=== PATIENT | female | born 1960 | race Caucasian/White ===

== ENCOUNTER 2020-02-09 11:41 | Outpatient (REF) | payer OTHER, SELFPAY ==
--- NOTE | 2020-02-09 11:45 | MM_ITS ---
EXAMINATION: MM SCREENING DIGITAL BREAST TOMOSYNTHESIS, BILATERAL CLINICAL INFORMATION: Screening. Asymptomatic. The lifetime risk of breast cancer based on the Tyrer-Cuzick Model is 5%. COMPARISON: Mammography: 09/23/2018, 07/04/2017, 04/26/2016 TECHNIQUE: Digital breast tomosynthesis is performed in both the craniocaudal and mediolateral oblique views along with computer-aided detection (CAD). Synthesized 2D images are generated from the tomosynthesis. FINDINGS: There are scattered areas of fibroglandular density (ACR BI-RADS breast composition Category b). There are no significant masses, abnormal calcifications, or other abnormalities. Parenchymal pattern is similar to prior studies. Nodular asymmetry mid central outer left breast on CC view is stable. There is no developing density. No significant changes from prior studies. MM/MM tomosynthesis screening BI IMPRESSION: No significant changes from prior studies. ASSESSMENT: BI-RADS 2: Benign RECOMMENDATION: Routine annual mammography screening. This patient's information was entered into a reminder system with a target due date for their next mammogram.
== END 2020-02-09 11:42 | disposition home or self-care (01) ==
LOC: HO.MAMMO 11:41
PROVIDERS: PCP Internal Medicine; Visit Provider Internal Medicine
DX: Z12.31 Encounter for screening mammogram for malignant neoplasm of breast (principal)
CPT/HCPCS: 77063; 77067

== ENCOUNTER 2020-03-03 13:39 | Outpatient (REF) | payer OTHER, SELFPAY ==
[2020-03-03 15:35] LABS: Alanine Aminotransferase 9 U/L (0-31); Albumin Level 3.9 g/dL (3.5-5.0); Alkaline Phosphatase 62 U/L (39-117); Anion Gap 12 (12-20); Aspartate Amino Transferase 13 U/L (5-31); Bilirubin Total 0.4 mg/dL (0.0-1.0); Blood Urea Nitrogen 15 mg/dL (9-16); Carbon Dioxide 29 mmol/L (22-29); Chloride 104 mmol/L (96-108); Cholesterol 197 mg/dL; Estimated Glomerular Filt Rate > 60; Glucose Random 109 mg/dL (60-115); HDL Cholesterol 41 mg/dL; LDL Cholesterol Calculated 117 mg/dl; Potassium 4.8 mmol/l (3.3-5.1); Sodium 140 mmol/L (135-145); Total Protein 6.6 g/dL (6.5-8.0); Triglycerides 199 mg/dL
== END 2020-03-03 13:40 | disposition home or self-care (01) ==
LOC: HO.LAB 13:39
PROVIDERS: PCP Internal Medicine; Visit Provider Internal Medicine
DX: E78.2 Mixed hyperlipidemia (principal); I10 Essential (primary) hypertension; R73.01 Impaired fasting glucose; Z72.0 Tobacco use
CPT/HCPCS: 80053; 80061

== ENCOUNTER 2020-10-21 16:55 | Inpatient (IN) | payer OTHER, SELFPAY ==
[2020-10-21] VITALS (8 sets, daily range): BP systolic 133–186; BP diastolic 76–103; PULSE 75–90; RESP 16–19; TEMP 36.8; O2SAT 95–96; BMI 28.9; BMI 36.3
--- NOTE | 2020-10-21 | ECG_ITS ---
Test Reason : ABNORML LABS Blood Pressure : / mmHG Vent. Rate : 094 BPM Atrial Rate : 094 BPM P-R Int : 154 ms QRS Dur : 074 ms QT Int : 372 ms P-R-T Axes : 072 066 010 degrees QTc Int : 465 ms Normal sinus rhythm Lateral ST depression Abnormal ECG When compared with ECG of 21-OCT-2020 17:50, Lateral changes are new Referred By: Lewis Luna Electronically Signed By:JEANNIE ESCOBAR
--- NOTE | ~2020-10-21 | XR_ITS ---
EXAMINATION: XR chest 1V CLINICAL INFORMATION: Chest pain COMPARISON: Prior chest x-ray May 2017 TECHNIQUE: XR chest 1V Lungs and Pura: Both lungs remain properly inflated, mild increased interstitial lung markings nonspecific unchanged, no dense lobar consolidation or pneumonia. Pleura: Normal. Costophrenic angles are sharp. No pneumothorax. Heart: The heart is normal in size. Mediastinum: The mediastinum is within normal limits.. Bones: Skeletal structures included are normal for patient's age. XR/XR chest 1V IMPRESSION: No radiographic evidence of acute cardiopulmonary disease.
--- NOTE | 2020-10-21 17:19 | ECG_ITS ---
Test Reason : CHEST PAIN Blood Pressure : / mmHG Vent. Rate : 087 BPM Atrial Rate : 087 BPM P-R Int : 150 ms QRS Dur : 074 ms QT Int : 380 ms P-R-T Axes : 069 056 002 degrees QTc Int : 457 ms Normal sinus rhythm Normal ECG No previous ECGs available Referred By: Generic ED Physician Electronically Signed By:JEANNIE ESCOBAR
--- NOTE | 2020-10-21 17:46 | PC.NURSE ---
EKG in use upon arrival
[2020-10-21 18:41] LABS: MANUAL DIFF FLAG NO
[2020-10-21 18:45] LABS: Basophils Absolute Auto 0.1 X10*3/uL (0.0-0.2); Basophils Percent Auto 0.6 % (0-2); Eosinophils Absolute Auto 0.1 X10*3/uL (0.0-0.4); Hemoglobin 16.9 g/dl (12.0-16.0); Imm Gran Abs Auto 0.05 X10*3/uL (0.00-0.03); Imm Gran Pct Auto 0.4 % (0.0-0.4); Lymphocytes Absolute Auto 2.3 X10*3/uL (1.2-4.9); Lymphocytes Percent Auto 18.7 % (20-40); Mean Corpuscular HGB Conc 34.5 g/dl (31.0-35.0); Mean Corpuscular Hemoglobin 31.9 pg (27.0-33.0); Mean Corpuscular Volume 92.5 fL (80-98); Mean Platelet Volume 11.1 fL (9.4-12.3); Monocytes Percent Auto 8.2 % (2-11); Neutrophils Absolute Auto 8.9 X10*3/uL (2.0-8.3); Neutrophils Percent Auto 71.1 % (45-73); Platelet Count 237 X10*3/uL (160-400); Red Cell Distribution Width 13.8 % (11.0-16.0); White Blood Count 12.5 X10*3/uL (4.8-10.8)
[2020-10-21 19:06] LABS: Anion Gap 14 (12-20); Blood Urea Nitrogen 11 mg/dL (9-16); Carbon Dioxide 27 mmol/L (22-29); Chloride 103 mmol/L (96-108); Creatinine Clr Calc Pharmacy 73.3; Estimated Glomerular Filt Rate > 60; Glucose Random 104 mg/dL (60-115); Potassium 4.4 mmol/L (3.3-5.1); Sodium 140 mmol/L (135-145)
[2020-10-21 19:30] LABS: Troponin-I High Sensitivity 1021.4 ng/L (<3.5-17.0)
--- NOTE | 2020-10-21 19:41 | ED_ITS ---
HPI - Chest Pain General Chief Complaint: Chest Pain Stated Complaint: chest pains Time Seen by Provider: 10/21/20 19:30 Source: patient Mode of arrival: ambulatory Limitations: no limitations History of Present Illness HPI narrative: Patient has history of hypertension hyperlipidemia not taking her medication for more than 1 year was at work 2 days ago noticed heaviness tightness feeling and mid chest lasted for few minutes during that day in the evening patient had multiple episodes of similar pain. Next day patient was feeling fine without any significant chest pain today she noticed to have more severe pain since 03:00 intermittent and just prior to arrival patient pain got worse and she vomited. Pain is radiating to the all over the chest patient never had similar pain in the past never had any stress test or cardiac evaluation MD complaint: chest pain Related Data Home Medications Medication Instructions Recorded Confirmed atorvastatin 1 tab PO BEDTIME 10/21/20 10/21/20 lisinopril-hydrochlorothiazide 1 tab PO DAILY 10/21/20 10/21/20 Allergies Allergy/AdvReac Type Severity Reaction Status Date / Time No Known Drug Allergies Allergy Mild NONE Verified 10/21/20 17:19 [NO KNOWN DRUG ALLERGIES] Review of Systems Review of Systems: Constitutional : No Weight loss, No Fever, No Chills ENT/Mouth : No sore throat, No Rhinorrhea Eyes: No Eye Pain, No Swelling Cardiovascular : +Chest Pain, no palpitations Respiratory : No Cough, No Sputum, no shortness of breath Gastrointestinal : no Nausea, No Vomiting, No Diarrhea, No abdominal Pain, no black stools Genitourinary : No Dysuria, No Urinary Frequency Musculoskeletal : No joint pain, No Myalgias, No Joint Swelling Skin : No Skin Lesions, No rash Neuro : No Weakness, No Numbness, No Dizziness, No Headache Psych : No Anxiety/Panic, No Depression Heme/Lymph: No Bruising, No Lymphadenopathy Endocrine : No Polyuria, No Polydipsia All other systems reviewed and are negative [facility] Past Medical History Medical History Hypertension Social History Social History Alcohol intake: never Patient Tobacco Use Status: Current everyday Tobacco user Smoked in Last 30 Days: Yes Use of substances other than those prescribed or required for medical reasons: No Advance Directives: No Advance Directives Information Provided: Yes Physical Exam Vital Signs: Vital Signs: Last Vital Signs Temp 98.2 F 10/21/20 17:15 Pulse 83 10/21/20 23:23 Resp 19 10/21/20 23:23 BP 133/85 10/21/20 23:23 Pulse Ox 96 10/21/20 23:23 Body Mass Index 36.3 Appearance: Alert. Oriented X3. No acute distress. Eyes: PERRLA, No Nystagmus ENT: Pharynx normal. Oral Mucosa moist Neck: Normal inspection. Neck supple. CVS: Normal heart rate and rhythm. Pulses normal. Respiratory: No respiratory distress. Equal air entry bilateral, no wheezing/rales/rhonchi Abdomen: Soft and nontender. Bowel sounds are present, no mass palpable, no CVA tenderness Skin: Skin warm and dry. Normal skin color. Normal skin turgor. Extremities: No lower extremity edema. No calf tenderness Neuro: Oriented X 3. No motor deficit. No sensory deficit.No cerebellar signs , cranial nerves II-XII intact MDM - Chest Pain MDM Narrative Medical decision making narrative: Patient's chest pain for last 3 days off and on getting worse waking her up from the sleep at 03:00 today EKG shows slight ST depression in lateral leads and T inversion inferior leads. Initial troponin was 1021.4 repeat troponin in 2 hours was 1379.9 patient denied any chest pain on after arrival in the ER nitropaste was applied start on heparin drip. Case discussed with Dr. Werner [employer] agreed with the plan will take the patient for cardiac catheterization if the clinician get worse Lab Data Attestation: I reviewed the patient's lab results. Result diagrams: 10/21/20 18:35 10/21/20 18:35 Labs: Lab Results 10/21/20 10/21/20 10/21/20 Range/Units 18:35 18:35 18:35 WBC 12.5 H (4.8-10.8) X10*3/uL RBC 5.30 (4.20-5.50) X10*6/uL Hgb 16.9 H (12.0-16.0) g/dl Hct 49.0 H (37-47) % MCV 92.5 (80-98) fL MCH 31.9 (27.0-33.0) pg MCHC 34.5 (31.0-35.0) g/dl RDW 13.8 (11.0-16.0) % Plt Count 237 (160-400) X10*3/uL MPV 11.1 (9.4-12.3) fL Immature Gran % (Auto) 0.4 (0.0-0.4) % Neut % (Auto) 71.1 (45-73) % Lymph % (Auto) 18.7 L (20-40) % Whitley % (Auto) 8.2 (2-11) % Eos % (Auto) 1.0 (0-4) % Baso % (Auto) 0.6 (0-2) % Lymph # (Auto) 2.3 (1.2-4.9) X10*3/uL Whitley # (Auto) 1.0 (0.1-1.2) X10*3/uL Eos # (Auto) 0.1 (0.0-0.4) X10*3/uL Baso # (Auto) 0.1 (0.0-0.2) X10*3/uL Abs Immat Gran (auto) 0.05 H (0.00-0.03) X10*3/uL Absolute Neuts (auto) 8.9 H (2.0-8.3) X10*3/uL Absolute Nucleated RBC 0.000 (0.0-0.012) X10*3/uL Nucleated RBC % (auto) 0.0 (0.0-0.2) /100WBC PT (9.9-13.0) SEC INR (0.9-1.1) APTT (24.1-38.0) SEC D-Dimer NG/ML Sodium 140 (135-145) mmol/L Potassium 4.4 (3.3-5.1) mmol/L Chloride 103 (96-108) mmol/L Carbon Dioxide 27 (22-29) mmol/L Anion Gap 14 (12-20) BUN 11 (9-16) mg/dL Creatinine 0.68 (0.5-1.4) mg/dL Estim Creat Clear Calc 73.3 Estimated GFR > 60 Random Glucose 104 (60-115) mg/dL Calcium 10.0 D (8.4-10.2) mg/dL Total Creatine Kinase (26-140) U/L Troponin I High Sens 1021.4 H* (<3.5-17.0) ng/L 10/21/20 10/21/20 10/21/20 Range/Units 19:55 19:55 19:55 WBC (4.8-10.8) X10*3/uL RBC (4.20-5.50) X10*6/uL Hgb (12.0-16.0) g/dl Hct (37-47) % MCV (80-98) fL MCH (27.0-33.0) pg MCHC (31.0-35.0) g/dl RDW (11.0-16.0) % Plt Count (160-400) X10*3/uL MPV (9.4-12.3) fL Immature Gran % (Auto) (0.0-0.4) % Neut % (Auto) (45-73) % Lymph % (Auto) (20-40) % Whitley % (Auto) (2-11) % Eos % (Auto) (0-4) % Baso % (Auto) (0-2) % Lymph # (Auto) (1.2-4.9) X10*3/uL Whitley # (Auto) (0.1-1.2) X10*3/uL Eos # (Auto) (0.0-0.4) X10*3/uL Baso # (Auto) (0.0-0.2) X10*3/uL Abs Immat Gran (auto) (0.00-0.03) X10*3/uL Absolute Neuts (auto) (2.0-8.3) X10*3/uL Absolute Nucleated RBC (0.0-0.012) X10*3/uL Nucleated RBC % (auto) (0.0-0.2) /100WBC PT 11.0 (9.9-13.0) SEC INR 1.0 (0.9-1.1) APTT 36.9 (24.1-38.0) SEC D-Dimer < 200 NG/ML Sodium (135-145) mmol/L Potassium (3.3-5.1) mmol/L Chloride (96-108) mmol/L Carbon Dioxide (22-29) mmol/L Anion Gap (12-20) BUN (9-16) mg/dL Creatinine (0.5-1.4) mg/dL Estim Creat Clear Calc Estimated GFR Random Glucose (60-115) mg/dL Calcium (8.4-10.2) mg/dL Total Creatine Kinase 178 H (26-140) U/L Troponin I High Sens 1373.9 H* (<3.5-17.0) ng/L ECG Data ECG #1: Attestation: I personally reviewed and interpreted this ECG as follows: Interpretation: normal sinus rhythm heart rate 87 beats normal axis normal intervals no acute ST-T slight ST segment depression , T inversion in lead 3 impression : ? Lateral wall ischemia ECG #2: Attestation: I personally reviewed and interpreted this ECG as follows: Prior ECG tracings: available for review Interpretation: Normal sinus rhythm with heart rate 94 beats per minute slight ST segment depression in V4 V5 V6. Critical Care Time Critical Care Time Critical Care Time: Yes Total Critical Care Time: 40 Attestation: I spent 40 minutes of critical care, with interventions, assessments, speaking to patient, consultants, and family. Discharge Plan Discharge Clinical Impression: Non-STEMI (non-ST elevated myocardial infarction) Patient Disposition: Admitted As Inpatient
[2020-10-21] MEDS: Nitroglycerin 2 % Oint 1 GM Packet 1 INCH TRANSDERMA (19:56)
[2020-10-21] MEDS: Aspirin Enteric Coated 325 MG TABLET.DR PO (20:06)
[2020-10-21 20:18] LABS: D Dimer < 200 NG/ML; Partial Thromboplastin Time 36.9 SEC (24.1-38.0)
[2020-10-21] MEDS: Heparin Sodium,Porcine 5,000 UNIT/ML VIAL 4000 UNIT IVPUSH (20:20)
[2020-10-21] MEDS: Metoprolol Tartrate 5 MG/5 ML VIAL IVPUSH (20:22)
--- NOTE | 2020-10-21 20:26 | PC.NURSE ---
Pt denies pain, skin pink warm and dry. family at bedside.
[2020-10-21] MEDS: Heparin Sodium,Porcine/1/2NS 25,000 UNIT/250 ML IV.SOLN 10 UNIT IVCONT ×2 (20:37→20:40)
[2020-10-21 20:45] LABS: Troponin-I High Sensitivity 1373.9 ng/L (<3.5-17.0)
--- NOTE | 2020-10-21 21:51 | PHA.MEDREC ---
Pharmacy Consult ? Medication Reconciliation Pharmacy has completed the medication reconciliation. Patient reports she has not taken any of her meds in over 1 year. This was confirmed by family with her.
--- NOTE | 2020-10-21 22:43 | P.HPHOSP_ITS ---
History of Present Illness Date of Service: 10/21/20 Chief Complaint: Chest pain 58-year-old female with a past medical history of hypertension, hyperlipidemia- noncompliant with home medications, tobacco dependence presented to the hospital with a chief complaint of chest pain. Patient mentioned that last night around 2:00 a.m. she felt chest heaviness associated nausea; lasted for about few minutes and subsequently subsided after that she has not felt well the whole day and in the afternoon she felt chest tig htness again associated nausea and the mild dizziness; hence decided to come to the ER for further evaluation. At the time of my interview patient denied any chest pain palpitations lightheadedness or dizziness. Reported that her symptoms resolved. Patient mentioned that she has hypertension/hyperlipidemia but not taking her medications regularly. Reports he smokes a pack of cigarettes/Day otherwise denies any toxic habits. Denies any fever chills cough. Denies any GI or symptoms. Review of all other systems is negative except mentioned above ER course: Per ER team patient noted to have mild ST depressions in the lateral leads; troponins noted to be elevated; discussed with Dr. Werner from Cardiology who recommended to start the patient on heparin drip and no need for transfer. [facility] Medical History Hypertension Family History (Updated 10/22/20 @ 10:48 by Alvaro Wrener MD) Mother CAD (coronary artery disease) Social History Household Members: Family Housing: House Do you presently have visiting nurse or other home services: No Alcohol intake: never Patient Tobacco Use Status: Current everyday Tobacco user service: No Current occupational status: employed Meds Allergies Allergy/AdvReac Type Severity Reaction Status Date / Time No Known Drug Allergies Allergy Mild NONE Verified 10/21/20 17:19 [NO KNOWN DRUG ALLERGIES] Active Medications: Current Medications Generic Name Dose Route Start Last Admin Trade Name Freq PRN Reason Stop Dose Admin Acetaminophen 650 mg 10/21/20 22:37 Acetaminophen 325 Mg Tablet PO Q6H PRN Pain, Mild (Pain Scale 1-3) Atorvastatin Calcium 80 mg 10/22/20 21:00 Atorvastatin Calcium 80 Mg Tablet PO BEDTIME FOR[facility]LY [facility] Heparin Sodium (Porcine) 3,400 unit 10/21/20 22:39 Heparin Sodium,Porcine 5,000 Unit/Ml Vial 40 unit/kg (3400 unit) IVPUSH BOLUS PRN 40 unit/kg - Heparin Protocol Heparin Sodium (Porcine) 6,800 unit 10/21/20 22:39 Heparin Sodium,Porcine 5,000 Unit/Ml Vial 80 unit/kg (6800 unit) IVPUSH BOLUS PRN 80 unit/kg - Heparin Protocol Heparin Sodium/Sodium Chloride 25,000 unit in 250 mls @ 0 mls/hr 10/21/20 20:15 10/21/20 20:37 IVCONT 11.83 units/kg/hr .Q0M MAHIN 10 mls/hr Administration Protocol Per Protocol Heparin Sodium/Sodium Chloride 25,000 unit in 250 mls @ 0 mls/hr 10/21/20 22:45 IVCONT .Q0M MAHIN Protocol Per Protocol Melatonin 6 mg 10/21/20 22:37 Melatonin 3 Mg Tablet PO BEDTIME PRN Insomnia Metoprolol Tartrate 25 mg 10/22/20 09:00 Metoprolol Tartrate 25 Mg Tablet PO BID [facility] Protocol Morphine Sulfate 1 mg 10/21/20 22:42 Morphine Sulfate 2 Mg/Ml Cartridge IVPUSH Q4H PRN chesPain Nitroglycerin 0.4 mg 10/21/20 22:37 Nitroglycerin 0.4 Mg Tab.Subl SUBLINGUAL Q5M PRN Chest Pain Sodium Chloride 3 ml 10/22/20 00:00 0.9 % Sodium Chloride Flush 3 Ml Syringe IVFLUSH QSHIFT [facility] Home Medications Medication Instructions Recorded Confirmed Last Taken Type lisinopril-hydrochlorothiazide 1 tab PO DAILY 10/21/20 10/21/20 Unknown History Physical Exam Vital Signs and Narrative: Vital Signs: Last Vital Signs Temp 98.2 F 10/21/20 17:15 Pulse 75 10/21/20 22:00 Resp 19 10/21/20 22:00 BP 143/77 H 10/21/20 22:00 Pulse Ox 96 10/21/20 22:00 Body Mass Index 36.3 Gen: Appears be in no acute distress HEENT: NCAT, Moist mucosa. Pulmonary: Vesicular breath sounds, fair air entry CVS: Normal S1-S2 Abdomen: BS+, Soft, Nontender Extremities: Warm well perfused Neuro: Alert and awake. Results Labs CBC and Chem 7: 10/23/20 05:58 10/23/20 05:58 Labs: Laboratory Results - last 24 hr 10/21/20 10/21/20 10/21/20 18:35 18:35 18:35 MCV 92.5 MCH 31.9 MCHC 34.5 RDW 13.8 Plt Count 237 MPV 11.1 Immature Gran % (Auto) 0.4 Neut % (Auto) 71.1 Lymph % (Auto) 18.7 L Stokes % (Auto) 8.2 Eos % (Auto) 1.0 Baso % (Auto) 0.6 Lymph # (Auto) 2.3 Stokes # (Auto) 1.0 Eos # (Auto) 0.1 Baso # (Auto) 0.1 Abs Immat Gran (auto) 0.05 H Absolute Neuts (auto) 8.9 H Absolute Nucleated RBC 0.000 Nucleated RBC % (auto) 0.0 PT INR APTT D-Dimer Anion Gap 14 Estim Creat Clear Calc 73.3 Estimated GFR > 60 Random Glucose 104 Calcium 10.0 D Total Creatine Kinase Troponin I High Sens 1021.4 H* 10/21/20 10/21/20 10/21/20 19:55 19:55 19:55 MCV MCH MCHC RDW Plt Count MPV Immature Gran % (Auto) Neut % (Auto) Lymph % (Auto) Stokes % (Auto) Eos % (Auto) Baso % (Auto) Lymph # (Auto) Stokes # (Auto) Eos # (Auto) Baso # (Auto) Abs Immat Gran (auto) Absolute Neuts (auto) Absolute Nucleated RBC Nucleated RBC % (auto) PT 11.0 INR 1.0 APTT 36.9 D-Dimer < 200 Anion Gap Estim Creat Clear Calc Estimated GFR Random Glucose Calcium Total Creatine Kinase 178 H Troponin I High Sens 1373.9 H* Imaging Radiologist's Impressions: Impressions Chest X-Ray 10/21/20 17:19 IMPRESSION: No radiographic evidence of acute cardiopulmonary disease. Assessment and Plan (1) Non-STEMI (non-ST elevated myocardial infarction): Status: Acute 60-year-old female with a past medical history of hypertension, hyperlipidemia, tobacco dependence presented to the hospital with a chief complaint of chest pain. Noted to elevated troponins and EKG with ST depressions in the lateral leads; admitted for NSTEMI. NSTEMI: Patient chest pain currently resolved. Continue heparin drip. Will keep the patient on metoprolol 25 mg b.i.d.. Will also give the patient on Lipitor 80 mg at bedtime. Will obtain TSH, hemoglobin A1c, lipid profile Echocardiogram Cardiology is aware of the patient. Hypertension: Patient on complaint with her home medications. Currently started on metoprolol 25 mg b.i.d.. Held home lisinopril/hydrochlorothiazide. Tobacco dependence: Counseled on smoking cessation. DVT prophylaxis: Patient on systemic anticoagulation Code status: Full code Quality Stroke Does the patient have a stroke diagnosis?: No VTE Prior VTE?: No VTE Risk Level:: Medical - moderate - high VTE Device Contraindication: Treatment Not Indicated VTE Drug Contraindication: Treatment Not Indicated
[2020-10-22] VITALS (9 sets, daily range): BP systolic 110–165; BP diastolic 60–81; PULSE 70–84; RESP 16–18; TEMP 36.2–37.4; O2SAT 92–98
[2020-10-22 00:51] LABS: COVID-19 Test Negative (Negative)
--- NOTE | 2020-10-22 01:18 | PC.NURSE ---
Sandra valdivia will call back for report.
[2020-10-22 02:58] LABS: MANUAL DIFF FLAG NO
[2020-10-22 03:00] LABS: Basophils Absolute Auto 0.1 X10*3/uL (0.0-0.2); Basophils Percent Auto 0.5 % (0-2); Eosinophils Absolute Auto 0.3 X10*3/uL (0.0-0.4); Eosinophils Percent Auto 1.9 % (0-4); Hematocrit 44.4 % (37-47); Imm Gran Abs Auto 0.08 X10*3/uL (0.00-0.03); Imm Gran Pct Auto 0.5 % (0.0-0.4); Lymphocytes Absolute Auto 4.3 X10*3/uL (1.2-4.9); Lymphocytes Percent Auto 29.3 % (20-40); Mean Corpuscular HGB Conc 33.8 g/dl (31.0-35.0); Mean Corpuscular Hemoglobin 31.5 pg (27.0-33.0); Mean Corpuscular Volume 93.3 fL (80-98); Mean Platelet Volume 11.1 fL (9.4-12.3); Monocytes Absolute Auto 1.3 X10*3/uL (0.1-1.2); Monocytes Percent Auto 8.6 % (2-11); Neutrophils Absolute Auto 8.6 X10*3/uL (2.0-8.3); Neutrophils Percent Auto 59.2 % (45-73); Platelet Count 216 X10*3/uL (160-400); Red Blood Count 4.76 X10*6/uL (4.20-5.50); Red Cell Distribution Width 13.9 % (11.0-16.0); White Blood Count 14.6 X10*3/uL (4.8-10.8)
[2020-10-22 03:22] LABS: PTT Heparin Drip 136.5 SEC (53-77.9)
[2020-10-22 03:33] LABS: Anion Gap 13 (12-20); Blood Urea Nitrogen 14 mg/dL (9-16); Calcium 8.8 mg/dL (8.4-10.2); Carbon Dioxide 23 mmol/L (22-29); Chloride 106 mmol/L (96-108); Creatinine Clr Calc Pharmacy 81.5; Estimated Glomerular Filt Rate > 60; Glucose Random 139 mg/dL (60-115); Potassium 3.3 mmol/L (3.3-5.1); Sodium 139 mmol/L (135-145)
[2020-10-22 05:04] LABS: PTT Heparin Drip 59.5 SEC (53-77.9)
[2020-10-22 05:31] LABS: Cholesterol 174 mg/dL; HDL Cholesterol 40 mg/dL; LDL Cholesterol Calculated 105 mg/dl; Triglycerides 147 mg/dL
[2020-10-22 06:58] LABS: Estimated Average Glucose 120 mg/dL; Hemoglobin A1c % 5.8 %
[2020-10-22] MEDS: Heparin Sodium,Porcine/1/2NS 25,000 UNIT/250 ML IV.SOLN 6.62 UNIT IVCONT (08:09)
[2020-10-22] MEDS: Metoprolol Tartrate 25 MG TABLET PO ×2 (09:52→20:42)
--- NOTE | 2020-10-22 10:45 | P.CONCA_ITS ---
History of Present Illness History of Present Illness Date of Service: 10/22/20 Consult reason: myocardial infarction Chief complaint: NSTEMI Narrative: This is a cardiology consultation regarding coronary disease and myocardial infarction. Patient does not have any known cardiac problems. No history of any coronary artery disease, prior PCI or in fact any cardiac issues whatsoever. She states that she has hypertension but has not taken medications in the last year or so. She is also long-term smoker. 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 In the last few days, she has been noticing chest tightness which has been intermittent. Also been having right arm discomfort about the same time. Then she present to the ER and was evaluated and found to have abnormal EKG as well as troponins and admitted to the hospital with a diagnosis of NSTEMI. Today she is pain free. Review of Systems Review of Systems: Yes all other systems are reviewed and are negative Cardiovascular: Cardiovascular: Reports as per HPI, Reports no additional cardiovascular complaints, Denies acrocyanosis, Denies cool extremities, Denies painful fingertips, Reports chest pain, Reports chest pain at rest, Denies diaphoresis, Denies syncope, Denies irregular heart rhythm, Denies claudication, Denies leg edema, Denies lightheadedness, Denies palpitations and Denies dyspnea Respiratory: Respiratory: Denies dyspnea Neurologic: Denies syncope Endocrine: Endocrine: Denies palpitations PMFSH Past Medical History Medical History Hypertension Family History Family History (Updated 10/22/20 @ 10:48 by Alvaro Werner MD) Mother CAD (coronary artery disease) Social History Social History Household Members: Family Housing: House Do you presently have visiting nurse or other home services: No Alcohol intake: never Patient Tobacco Use Status: Current everyday Tobacco user Smoked in Last 30 Days: Yes Use of substances other than those prescribed or required for medical reasons: No Currently Displaying Signs/Symptoms of Drug Intoxication Withdrawal: No Have you been hit, kicked, punched, or otherwise hurt by someone within the past year? If so, by whom?: No Do you feel safe in your current relationship?: Yes Is there a partner from a previous relationship who is making you feel unsafe now?: No Are you made to feel afraid or neglected: No Advance Directives: No Advance Directives Information Provided: Yes Do you have thoughts of harming others: None Do you have a plan to hurt others: No Plan Recently lost weight without trying: No Eating poorly because of decreased appetite: No Patient : No : No Poor oral hygiene: No Meds Allergies Allergy/AdvReac Type Severity Reaction Status Date / Time No Known Drug Allergies Allergy Mild NONE Verified 10/21/20 17:19 [NO KNOWN DRUG ALLERGIES] Active Medications: Current Medications Generic Name Dose Route Start Last Admin Trade Name Freq PRN Reason Stop Dose Admin Acetaminophen 650 mg 10/21/20 22:37 Acetaminophen 325 Mg Tablet PO Q6H PRN Pain, Mild (Pain Scale 1-3) Atorvastatin Calcium 80 mg 10/22/20 21:00 Atorvastatin Calcium 80 Mg Tablet PO BEDTIME [facility] Heparin Sodium (Porcine) 3,400 unit 10/21/20 22:39 Heparin Sodium,Porcine 5,000 Unit/Ml Vial 40 unit/kg (3400 unit) IVPUSH BOLUS PRN 40 unit/kg - Heparin Protocol Heparin Sodium (Porcine) 6,800 unit 10/21/20 22:39 Heparin Sodium,Porcine 5,000 Unit/Ml Vial 80 unit/kg (6800 unit) IVPUSH BOLUS PRN 80 unit/kg - Heparin Protocol Heparin Sodium/Sodium Chloride 25,000 unit in 250 mls @ 0 mls/hr 10/21/20 23:00 10/22/20 08:09 IVCONT 7.83 units/kg/hr .Q0M MAHIN 6.62 mls/hr Administration Protocol Per Protocol Melatonin 6 mg 10/21/20 22:37 Melatonin 3 Mg Tablet PO BEDTIME PRN Insomnia Metoprolol Tartrate 25 mg 10/22/20 09:00 10/22/20 09:52 Metoprolol Tartrate 25 Mg Tablet PO 25 mg BID [facility] Administration Protocol Morphine Sulfate 1 mg 10/21/20 22:42 Morphine Sulfate 2 Mg/Ml Cartridge IVPUSH Q4H PRN chesPain Nitroglycerin 0.4 mg 10/21/20 22:37 Nitroglycerin 0.4 Mg Tab.Subl SUBLINGUAL Q5M PRN Chest Pain Sodium Chloride 3 ml 10/22/20 00:00 10/22/20 08:13 0.9 % Sodium Chloride Flush 3 Ml Syringe IVFLUSH Not Given QSHIFT [facility] Home Medications Medication Instructions Recorded Confirmed Last Taken Type atorvastatin 1 tab PO BEDTIME 10/21/20 10/21/20 Unknown History lisinopril-hydrochlorothiazide 1 tab PO DAILY 10/21/20 10/21/20 Unknown History Physical Exam Vital Signs: Vital Signs: Last Vital Signs Temp 98 F 10/22/20 07:42 Pulse 73 10/22/20 09:52 Resp 16 10/22/20 07:42 BP 110/60 10/22/20 09:52 Pulse Ox 96 10/22/20 07:42 Body Mass Index 36.3 Const: General: cooperative and no acute distress HENMT: Other: Unremarkable Neck: Neck: Yes normal visual inspection Chest: Chest palpation & inspection: normal inspection of the chest Resp: Auscultation: clear to auscultation bilaterally, no crackles and no wheezes Cardio: Jugular venous distension: no JVD Palpation: normal PMI Heart sounds: S1 normal heart sound present, S2 normal heart sound present, no blancas ps, no murmurs and no rubs GI: Palpation (GI): Soft to palpation Back/Spine/Pelvis: Other: unremarkable Skin: General skin exam: no rashes or lesions noted Neuro: Cranial nerves: Yes Other cranial nerve findings present Extrem: General: Yes no clubbing, cyanosis or edema Psych: Mental Status: other Results Labs and Meds Result diagrams: 10/22/20 02:48 10/22/20 02:48 Lab results: Laboratory Results - last 24 hr 10/21/20 10/21/20 10/21/20 18:35 18:35 18:35 WBC 12.5 H RBC 5.30 Hgb 16.9 H Hct 49.0 H MCV 92.5 MCH 31.9 MCHC 34.5 RDW 13.8 Plt Count 237 MPV 11.1 Immature Gran % (Auto) 0.4 Neut % (Auto) 71.1 Lymph % (Auto) 18.7 L [place] % (Auto) 8.2 Eos % (Auto) 1.0 Baso % (Auto) 0.6 Lymph # (Auto) 2.3 [place] # (Auto) 1.0 Eos # (Auto) 0.1 Baso # (Auto) 0.1 Abs Immat Gran (auto) 0.05 H Absolute Neuts (auto) 8.9 H Absolute Nucleated RBC 0.000 Nucleated RBC % (auto) 0.0 PT INR APTT PTT (Heparin Protocol) D-Dimer Sodium 140 Potassium 4.4 Chloride 103 Carbon Dioxide 27 Anion Gap 14 BUN 11 Creatinine 0.68 Estim Creat Clear Calc 73.3 Estimated GFR > 60 Random Glucose 104 Estimat Average Glucose Hemoglobin A1c % Calcium 10.0 D Total Creatine Kinase Troponin I High Sens 1021.4 H* Triglycerides Cholesterol LDL Cholesterol, Calc HDL Cholesterol COVID-19 (DEBBIE) COVID-19 Clin Com 10/21/20 10/21/20 10/21/20 19:55 19:55 19:55 WBC RBC Hgb Hct MCV MCH MCHC RDW Plt Count MPV Immature Gran % (Auto) Neut % (Auto) Lymph % (Auto) [place] % (Auto) Eos % (Auto) Baso % (Auto) Lymph # (Auto) [place] # (Auto) Eos # (Auto) Baso # (Auto) Abs Immat Gran (auto) Absolute Neuts (auto) Absolute Nucleated RBC Nucleated RBC % (auto) PT 11.0 INR 1.0 APTT 36.9 PTT (Heparin Protocol) D-Dimer < 200 Sodium Potassium Chloride Carbon Dioxide Anion Gap BUN Creatinine Estim Creat Clear Calc Estimated GFR Random Glucose Estimat Average Glucose Hemoglobin A1c % Calcium Total Creatine Kinase 178 H Troponin I High Sens 1373.9 H* Triglycerides Cholesterol LDL Cholesterol, Calc HDL Cholesterol COVID-19 (DEBBIE) COVID-19 Clin Com 10/22/20 10/22/20 10/22/20 00:30 02:48 02:48 WBC 14.6 H RBC 4.76 Hgb 15.0 Hct 44.4 MCV 93.3 MCH 31.5 MCHC 33.8 RDW 13.9 Plt Count 216 MPV 11.1 Immature Gran % (Auto) 0.5 H Neut % (Auto) 59.2 Lymph % (Auto) 29.3 [place] % (Auto) 8.6 Eos % (Auto) 1.9 Baso % (Auto) 0.5 Lymph # (Auto) 4.3 [place] # (Auto) 1.3 H Eos # (Auto) 0.3 Baso # (Auto) 0.1 Abs Immat Gran (auto) 0.08 H Absolute Neuts (auto) 8.6 H Absolute Nucleated RBC 0.000 Nucleated RBC % (auto) 0.0 PT INR APTT PTT (Heparin Protocol) D-Dimer Sodium Potassium Chloride Carbon Dioxide Anion Gap BUN Creatinine Estim Creat Clear Calc Estimated GFR Random Glucose Estimat Average Glucose 120 Hemoglobin A1c % 5.8 Calcium Total Creatine Kinase Troponin I High Sens Triglycerides Cholesterol LDL Cholesterol, Calc HDL Cholesterol COVID-19 (DEBBIE) Negative COVID-19 [facility] Com See Note 10/22/20 10/22/20 10/22/20 02:48 02:48 04:49 WBC RBC Hgb Hct MCV MCH MCHC RDW Plt Count MPV Immature Gran % (Auto) Neut % (Auto) Lymph % (Auto) [place] % (Auto) Eos % (Auto) Baso % (Auto) Lymph # (Auto) [place] # (Auto) Eos # (Auto) Baso # (Auto) Abs Immat Gran (auto) Absolute Neuts (auto) Absolute Nucleated RBC Nucleated RBC % (auto) PT INR APTT PTT (Heparin Protocol) 136.5 H* D-Dimer Sodium 139 Potassium 3.3 D Chloride 106 Carbon Dioxide 23 Anion Gap 13 BUN 14 Creatinine 0.69 Estim Creat Clear Calc 81.5 Estimated GFR > 60 Random Glucose 139 H Estimat Average Glucose Hemoglobin A1c % Calcium 8.8 D Total Creatine Kinase Troponin I High Sens Triglycerides 147 Cholesterol 174 LDL Cholesterol, Calc 105 HDL Cholesterol 40 COVID-19 (DEBBIE) COVID-OPHTHONIX 10/22/20 04:49 WBC RBC Hgb Hct MCV MCH MCHC RDW Plt Count MPV Immature Gran % (Auto) Neut % (Auto) Lymph % (Auto) [place] % (Auto) Eos % (Auto) Baso % (Auto) Lymph # (Auto) [place] # (Auto) Eos # (Auto) Baso # (Auto) Abs Immat Gran (auto) Absolute Neuts (auto) Absolute Nucleated RBC Nucleated RBC % (auto) PT INR APTT PTT (Heparin Protocol) 59.5 D D-Dimer Sodium Potassium Chloride Carbon Dioxide Anion Gap BUN Creatinine Estim Creat Clear Calc Estimated GFR Random Glucose Estimat Average Glucose Hemoglobin A1c % Calcium Total Creatine Kinase Troponin I High Sens Triglycerides Cholesterol LDL Cholesterol, Calc HDL Cholesterol COVID-19 (DEBBIE) COVID-19 Us[facility] ECG Attestation: I personally reviewed and interpreted this ECG as follows: Interpretation: EKG with sinus rhythm and ST depression laterally. Imaging Radiologist's impression: Impressions Chest X-Ray 10/21/20 17:19 IMPRESSION: No radiographic evidence of acute cardiopulmonary disease. Assessment and Plan (1) Non-STEMI (non-ST elevated myocardial infarction): Status: Acute (2) Essential hypertension: Status: Acute (3) Smoking: Status: Acute Labs reviewed. Initial high sensitivity troponin 1021. Repeat 1373. LDL cholesterol 105. Triglycerides 147. BUN/creatinine unremarkable. Hemoglobin is stable. Platelets are normal range. INR is 1. . Based on symptoms, abnormal EKG, elevated troponins, she clearly has an acute myocardial infarction. Continue IV heparin, beta-blockers and high-dose statins. We will plan on jose calabrese to [facility] tomorrow for cardiac catheterization. Procedures Date of Service Date of Service: 10/22/20
[2020-10-22] MEDS: Aspirin 81 MG TAB.CHEW PO (11:18)
--- NOTE | 2020-10-22 11:42 | MHC.CM.PN ---
CM MET WITH PT WHO REPORTS SHE LIVES AT HOME WITH HER S/O AND HER ADULT DAUGHTER. PT REPORTS SHE IS INDEPENDENT WITH ALL CARE AND MOBILITY, HAS NO SERVICES AND NO DME. PT CONFIRMS HER PCP IS NICOLA DAVID. PT DOES NOT HAVE A HCP. SHE REPORTS SHE IS CONSIDERING COMPLETING ONE BUT IS NOT READY TO DO SO YET. PT WOULD LIKE TO THINK ABOUT THIS FURTHER AND IS AWARE SHE CAN REQUEST CM AT ANY TIME DURING ADMISSION FOR ASSISTANCE IN COMPLETING DOCUMENT. CM ALSO INFORMED HER A BLANK DOCUMENT COULD BE PROVIDED FOR HER TO COMPLETE POST ADMISSION IF SHE PREFERS. CURRENT DC PLAN IS HOME WITH NO SERVICES FAMILY TO TRANSPORT
[2020-10-22 11:49] LABS: PTT Heparin Drip 55.5 SEC (53-77.9)
--- NOTE | 2020-10-22 13:24 | PM.IMPN ---
Subjective Subjective Date of Service: 10/22/20 Interval History: Follow up NSTEMI pain free Physical Exam Vital Signs: Vital Signs: Last Vital Signs Temp 97.3 F 10/22/20 11:28 Pulse 80 10/22/20 11:28 Resp 16 10/22/20 11:28 BP 132/69 10/22/20 11:28 Pulse Ox 97 10/22/20 11:28 Body Mass Index 36.3 Appearing in no acute distress lung sounds are clear to auscultation heart regular rate rhythm, clear S1, S2 positive bowel sounds, abdomen is soft, nontender neuro patient is alert x3, no focal deficits Objective Data Current Medications Generic Name Dose Route Start Last Admin Trade Name Freq PRN Reason Stop Dose Admin Acetaminophen 650 mg 10/21/20 22:37 Acetaminophen 325 Mg Tablet PO Q6H PRN Pain, Mild (Pain Scale 1-3) Aspirin 81 mg 10/22/20 10:55 10/22/20 11:18 Aspirin 81 Mg Tab.Chew PO 81 mg DAILY MAHIN Administration Atorvastatin Calcium 80 mg 10/22/20 21:00 Atorvastatin Calcium 80 Mg Tablet PO BEDTIME MAHIN Heparin Sodium (Porcine) 3,400 unit 10/21/20 22:39 Heparin Sodium,Porcine 5,000 Unit/Ml Vial 40 unit/kg (3400 unit) IVPUSH BOLUS PRN 40 unit/kg - Heparin Protocol Heparin Sodium (Porcine) 6,800 unit 10/21/20 22:39 Heparin Sodium,Porcine 5,000 Unit/Ml Vial 80 unit/kg (6800 unit) IVPUSH BOLUS PRN 80 unit/kg - Heparin Protocol Heparin Sodium/Sodium Chloride 25,000 unit in 250 mls @ 0 mls/hr 10/21/20 23:00 10/22/20 08:09 IVCONT 7.83 units/kg/hr .Q0M MAHIN 6.62 mls/hr Administration Protocol Per Protocol Melatonin 6 mg 10/21/20 22:37 Melatonin 3 Mg Tablet PO BEDTIME PRN Insomnia Metoprolol Tartrate 25 mg 10/22/20 09:00 10/22/20 09:52 Metoprolol Tartrate 25 Mg Tablet PO 25 mg BID MAHIN Administration Protocol Morphine Sulfate 1 mg 10/21/20 22:42 Morphine Sulfate 2 Mg/Ml Cartridge IVPUSH Q4H PRN chesPain Nitroglycerin 0.4 mg 10/21/20 22:37 Nitroglycerin 0.4 Mg Tab.Subl SUBLINGUAL Q5M PRN Chest Pain Sodium Chloride 3 ml 10/22/20 00:00 10/22/20 08:13 0.9 % Sodium Chloride Flush 3 Ml Syringe IVFLUSH Not Given QSHIFT [facility] Labs CBC & Chem 7: 10/22/20 02:48 10/22/20 02:48 Labs: Laboratory Results - last 24 hr 10/21/20 10/21/20 10/21/20 18:35 18:35 18:35 MCV 92.5 MCH 31.9 MCHC 34.5 RDW 13.8 Plt Count 237 MPV 11.1 Immature Gran % (Auto) 0.4 Neut % (Auto) 71.1 Lymph % (Auto) 18.7 L [place] % (Auto) 8.2 Eos % (Auto) 1.0 Baso % (Auto) 0.6 Lymph # (Auto) 2.3 [place] # (Auto) 1.0 Eos # (Auto) 0.1 Baso # (Auto) 0.1 Abs Immat Gran (auto) 0.05 H Absolute Neuts (auto) 8.9 H Absolute Nucleated RBC 0.000 Nucleated RBC % (auto) 0.0 PT INR APTT PTT (Heparin Protocol) D-Dimer Anion Gap 14 Estim Creat Clear Calc 73.3 Estimated GFR > 60 Random Glucose 104 Estimat Average Glucose Hemoglobin A1c % Calcium 10.0 D Total Creatine Kinase Troponin I High Sens 1021.4 H* Triglycerides Cholesterol LDL Cholesterol, Calc HDL Cholesterol COVID-19 (DEBBIE) COVID-19 Clin Com 10/21/20 10/21/20 10/21/20 19:55 19:55 19:55 MCV MCH MCHC RDW Plt Count MPV Immature Gran % (Auto) Neut % (Auto) Lymph % (Auto) [place] % (Auto) Eos % (Auto) Baso % (Auto) Lymph # (Auto) [place] # (Auto) Eos # (Auto) Baso # (Auto) Abs Immat Gran (auto) Absolute Neuts (auto) Absolute Nucleated RBC Nucleated RBC % (auto) PT 11.0 INR 1.0 APTT 36.9 PTT (Heparin Protocol) D-Dimer < 200 Anion Gap Estim Creat Clear Calc Estimated GFR Random Glucose Estimat Average Glucose Hemoglobin A1c % Calcium Total Creatine Kinase 178 H Troponin I High Sens 1373.9 H* Triglycerides Cholesterol LDL Cholesterol, Calc HDL Cholesterol COVID-19 (DEBBIE) COVID-19 Clin Com 10/22/20 10/22/20 10/22/20 00:30 02:48 02:48 MCV 93.3 MCH 31.5 MCHC 33.8 RDW 13.9 Plt Count 216 MPV 11.1 Immature Gran % (Auto) 0.5 H Neut % (Auto) 59.2 Lymph % (Auto) 29.3 [place] % (Auto) 8.6 Eos % (Auto) 1.9 Baso % (Auto) 0.5 Lymph # (Auto) 4.3 [place] # (Auto) 1.3 H Eos # (Auto) 0.3 Baso # (Auto) 0.1 Abs Immat Gran (auto) 0.08 H Absolute Neuts (auto) 8.6 H Absolute Nucleated RBC 0.000 Nucleated RBC % (auto) 0.0 PT INR APTT PTT (Heparin Protocol) D-Dimer Anion Gap Estim Creat Clear Calc Estimated GFR Random Glucose Estimat Average Glucose 120 Hemoglobin A1c % 5.8 Calcium Total Creatine Kinase Troponin I High Sens Triglycerides Cholesterol LDL Cholesterol, Calc HDL Cholesterol COVID-19 (DEBBIE) Negative COVID-19 Clin Com See Note 10/22/20 10/22/20 10/22/20 02:48 02:48 04:49 MCV MCH MCHC RDW Plt Count MPV Immature Gran % (Auto) Neut % (Auto) Lymph % (Auto) [place] % (Auto) Eos % (Auto) Baso % (Auto) Lymph # (Auto) [place] # (Auto) Eos # (Auto) Baso # (Auto) Abs Immat Gran (auto) Absolute Neuts (auto) Absolute Nucleated RBC Nucleated RBC % (auto) PT INR APTT PTT (Heparin Protocol) 136.5 H* D-Dimer Anion Gap 13 Estim Creat Clear Calc 81.5 Estimated GFR > 60 Random Glucose 139 H Estimat Average Glucose Hemoglobin A1c % Calcium 8.8 D Total Creatine Kinase Troponin I High Sens Triglycerides 147 Cholesterol 174 LDL Cholesterol, Calc 105 HDL Cholesterol 40 COVID-19 (DEBBIE) COVID-19 Clin Com 10/22/20 10/22/20 04:49 11:08 MCV MCH MCHC RDW Plt Count MPV Immature Gran % (Auto) Neut % (Auto) Lymph % (Auto) [place] % (Auto) Eos % (Auto) Baso % (Auto) Lymph # (Auto) [place] # (Auto) Eos # (Auto) Baso # (Auto) Abs Immat Gran (auto) Absolute Neuts (auto) Absolute Nucleated RBC Nucleated RBC % (auto) PT INR APTT PTT (Heparin Protocol) 59.5 D 55.5 D-Dimer Anion Gap Estim Creat Clear Calc Estimated GFR Random Glucose Estimat Average Glucose Hemoglobin A1c % Calcium Total Creatine Kinase Troponin I High Sens Triglycerides Cholesterol LDL Cholesterol, Calc HDL Cholesterol COVID-19 (DEBBIE) COVID-19 Clin Com Progress Note: A&P (1) Essential hypertension: Status: Acute (2) Non-STEMI (non-ST elevated myocardial infarction): Status: Acute Assessment and Plan: 60-year-old female with a past medical history of hypertension, hyperlipidemia, tobacco dependence presented to the hospital with a chief complaint of chest pain. Noted to elevated troponins and EKG with ST depressions in the lateral leads; admitted for NSTEMI. NSTEMI. Patient chest pain currently resolved. Continue heparin drip. metoprolol 25 mg b.i.d.. Lipitor 80 mg at bedtime. Will obtain TSH, hemoglobin A1c, lipid profile Echocardiogram Cardiology following, transfer to [facility] for cath tommorrow Hypertension. Currently started on metoprolol 25 mg b.i.d.. Held home lisinopril/hydrochlorothiazide. Tobacco dependence. NRT if needed Counseled on smoking cessation. DVT prophylaxis: Patient on systemic anticoagulation Code status: Full code Attending Dr. Bonner Quality Stroke Does the patient have a stroke diagnosis?: No VTE Prior VTE?: No VTE Risk Level:: Medical - moderate - high VTE Device Contraindication: Treatment Not Indicated VTE Drug Contraindication: Treatment Not Indicated
[2020-10-22] MEDS: 0.9 % Sodium Chloride Flush 3 ML SYRINGE IVFLUSH ×2 (17:31→20:43)
[2020-10-22 17:46] LABS: Delay - Coag DELAY
[2020-10-22 18:06] LABS: PTT Heparin Drip 63.5 SEC (53-77.9)
[2020-10-22] MEDS: Atorvastatin Calcium 80 MG TABLET PO (20:42)
[2020-10-23 03:17] VITALS: BP 117/67; PULSE 65; RESP 18; TEMP 36.9; O2SAT 94
[2020-10-23 06:19] LABS: Hematocrit 44.8 % (37-47); Hemoglobin 14.8 g/dl (12.0-16.0); Mean Corpuscular Hemoglobin 31.2 pg (27.0-33.0); Mean Corpuscular Volume 94.3 fL (80-98); Mean Platelet Volume 11.1 fL (9.4-12.3); Platelet Count 204 X10*3/uL (160-400); Red Blood Count 4.75 X10*6/uL (4.20-5.50); Red Cell Distribution Width 13.8 % (11.0-16.0); White Blood Count 9.7 X10*3/uL (4.8-10.8)
[2020-10-23 06:28] LABS: PTT Heparin Drip 64.5 SEC (53-77.9)
[2020-10-23 06:46] LABS: Anion Gap 11 (12-20); Blood Urea Nitrogen 11 mg/dL (9-16); Calcium 8.9 mg/dL (8.4-10.2); Carbon Dioxide 26 mmol/L (22-29); Chloride 107 mmol/L (96-108); Creatinine Clr Calc Pharmacy 100.4; Estimated Glomerular Filt Rate > 60; Glucose Random 101 mg/dL (60-115); Potassium 4.1 mmol/L (3.3-5.1); Sodium 140 mmol/L (135-145)
[2020-10-23 07:20] VITALS: BP 137/71; PULSE 67; RESP 20; TEMP 37.1; O2SAT 95
--- NOTE | 2020-10-23 08:03 | P.DS_ITS ---
DS: Providers Provider Date of Service: 10/23/20 Date of admission: 10/21/20 22:37 Date of discharge: 10/23/20 Primary care physician: Elise Bustillo MD Admitting clinician: Paolo Slater Attending physician on admission: Paolo Slater Consults: 10/21/20 22:37 Consult to Cardiology Routine Consulting Provider: Alvaro Werner Reason for consultation: NSTEMI Attending physician on discharge: Simone Bonner Discharging clinician: Antoinette Barreto DS: Diagnosis Discharge Diagnosis (1) Essential hypertension: Status: Acute (2) Non-STEMI (non-ST elevated myocardial infarction): Status: Acute DS: Medications Discharge Medications Home Medications: Home Medications Medication Instructions Recorded Confirmed atorvastatin 1 tab PO BEDTIME 10/21/20 10/21/20 lisinopril-hydrochlorothiazide 1 tab PO DAILY 10/21/20 10/21/20 DS: Summary Hospital Course Hospital Course: HP as per admitting provider 58-year-old female with a past medical history of hypertension, hyperlipidemia-noncompliant with home medications, tobacco dependence presented to the hospital with a chief complaint of chest pain. Kaya lee mentioned that last night around 2:00 a.m. she felt chest heaviness associated nausea; lasted for about few minutes and subsequently subsided after that she has not felt well the whole day and in the afternoon she felt chest tightness again associated nausea and the mild dizziness; hence decided to come to the ER for further evaluation. At the time of my interview patient denied any chest pain palpitations lightheadedness or dizziness. Reported that her symptoms resolved. Patient mentioned that she has hypertension/hyperlipidemia but not taking her medications regularly. Reports he smokes a pack of cigarettes/Day otherwise denies any toxic habits. Denies any fever chills cough.Denies any GI or symptoms. Review of all other systems is negative except mentioned above ER course: Per ER team patient noted to have mild ST depressions in the lateral leads; troponins noted to be elevated; discussed with Dr. Werner from Cardiology who recommended to start the patient on heparin drip and no need for transfer . NSTEMI. Admitted with chest pressure and heaviness. History of hypertension, hyperlipidemia and smoking. Peak high sensitivity troponin 1373.9, EKG showed lateral ST depressions. Pain subsided after nitro and morphine. Subsequently started on IV Heparin. Seen and evaluated by cardiology, plan for transfer to [facility] for cardiac catheterization. Otherwise patient remains pain free. Time Spent with Patient Time attestation: Total time spent providing and/or coordinating discharge services: Discharge coordination time: Greater than 30 minutes Quality: Stroke Does the patient have a stroke diagnosis?: No Physical Exam Vital Signs: Vital Signs: Last Vital Signs Temp 98.8 F 10/23/20 07:20 Pulse 67 10/23/20 07:20 Resp 20 10/23/20 07:20 BP 137/71 10/23/20 07:20 Pulse Ox 95 10/23/20 07:20 Body Mass Index 36.3 Appearing in no acute distress head is normocephalic atraumatic eyes pupils are PERRLA sclera is anicteric mouth throat mucous membranes are intact and moist neck is supple no lymphadenopathy, no JVD noted lung sounds are clear to auscultation heart regular rate rhythm, clear S1, S2 positive bowel sounds, abdomen is soft, nontender neuro patient is alert x3, no focal deficits DS: Data Data Completed and Pending Labs on day of discharge: Laboratory Results - last 24 hr 10/22/20 10/22/20 10/23/20 11:08 17:18 05:58 WBC RBC Hgb Hct MCV MCH MCHC RDW Plt Count MPV Absolute Nucleated RBC Nucleated RBC % (auto) PTT (Heparin Protocol) 55.5 63.5 64.5 Coag Specimen Comment DELAY Sodium Potassium Chloride Carbon Dioxide Anion Gap BUN Creatinine Estim Creat Clear Calc Estimated GFR Random Glucose Calcium 10/23/20 10/23/20 05:58 05:58 WBC 9.7 RBC 4.75 Hgb 14.8 Hct 44.8 MCV 94.3 MCH 31.2 MCHC 33.0 RDW 13.8 Plt Count 204 MPV 11.1 Absolute Nucleated RBC 0.000 Nucleated RBC % (auto) 0.0 PTT (Heparin Protocol) Coag Specimen Comment Sodium 140 Potassium 4.1 D Chloride 107 Carbon Dioxide 26 Anion Gap 11 L BUN 11 Creatinine 0.56 Estim Creat Clear Calc 100.4 Estimated GFR > 60 Random Glucose 101 Calcium 8.9 Discharge Plan Discharge Anticipated Discharge Date/Time: 10/23/20 12:07 Patient Disposition: Xfer Acute Care Hospital Discharge Diagnosis: NSTEMI Referrals: Elise Bustillo MD [Primary Care Provider] - 1 Week Discharge Medications: New heparin(porcine) in 0.45% NaCl 25,000 unit/250 mL Parenteral Solution 25,000 unit continuous IV infusion .Q0M Qty: 250 RF: 0 atorvastatin 80 mg Tablet 80 mg PO BEDTIME Qty: 30 RF: 0 aspirin 81 mg Tablet,Chewable 81 mg PO DAILY Qty: 30 RF: 0 metoprolol tartrate 25 mg Tablet 25 mg PO BID Qty: 60 RF: 0 Continued lisinopril-hydrochlorothiazide 10-12.5 mg tablet 1 tab PO DAILY RF: 0 Discontinued atorvastatin 20 mg tablet 1 tab PO BEDTIME RF: 0 Discharge Orders: Discharge Order (Routine); Ordered 10/23/20 Ordered By: Antoinette Barreto Diet: advance to usual diet Activity on Discharge: As tolerated Stand Alone Forms: Patient Portal Discharge page Care Plan Goals: Plan for cardiac catheterization at [facility]. Goal is for resolution of NSTEMI symptoms. Health Concerns: NSTEMI Plan of Treatment: Transfer to [facility] for cardiac catheterization Assessment: See discharge summary Discharge Date/Time: 10/23/20 13:49
[2020-10-23 09:07] VITALS: BP 137/71; PULSE 67
[2020-10-23] MEDS: Metoprolol Tartrate 25 MG TABLET PO (09:07)
[2020-10-23] MEDS: 0.9 % Sodium Chloride Flush 3 ML SYRINGE IVFLUSH (09:07)
[2020-10-23] MEDS: Aspirin 81 MG TAB.CHEW PO (09:07)
--- NOTE | 2020-10-23 11:50 | PM.PNCARD ---
Subjective Subjective Date of Service: 10/23/20 Interval history: Feels ok. Review of Systems Review of Systems Yes all other systems are reviewed and are negative Cardiovascular: Reports as per HPI, Reports no additional cardiovascular complaints, Denies acrocyanosis, Denies cool extremities, Denies painful fingertips, Reports chest pain, Reports chest pain at rest, Denies diaphoresis, Denies syncope, Denies irregular heart rhythm, Denies claudication, Denies leg edema, Denies lightheadedness, Denies palpitations and Denies dyspnea Respiratory: Denies dyspnea Denies syncope Endocrine: Denies palpitations Physical Exam Vital Signs: Last Vital Signs Temp 98.8 F 10/23/20 07:20 Pulse 67 10/23/20 09:07 Resp 20 10/23/20 07:20 BP 137/71 10/23/20 09:07 Pulse Ox 95 10/23/20 07:20 Body Mass Index 36.3 Const General: cooperative and no acute distress HENND Other: Unremarkable Neck Neck: Yes normal visual inspection Chest Chest palpation & inspection: normal inspection of the chest Resp Auscultation: clear to auscultation bilaterally, no crackles and no wheezes Cardio Jugular venous distension: no JVD Palpation: normal PMI Heart sounds: S1 normal heart sound present, S2 normal heart sound present, no gallops, no murmurs and no rubs GI Palpation (GI): Soft to palpation Back/Spine/Pelvis Other: unremarkable Skin General skin exam: no rashes or lesions noted Neuro Cranial nerves: Yes Other cranial nerve findings present Extrem General: Yes no clubbing, cyanosis or edema Psych Mental Status: other Results Labs and Meds Result diagrams: 10/23/20 05:58 10/23/20 05:58 Lab results: Laboratory Results - last 24 hr 10/22/20 10/22/20 10/23/20 11:08 17:18 05:58 WBC RBC Hgb Hct MCV MCH MCHC RDW Plt Count MPV Absolute Nucleated RBC Nucleated RBC % (auto) PTT (Heparin Protocol) 55.5 63.5 64.5 Coag Specimen Comment DELAY Sodium Potassium Chloride Carbon Dioxide Anion Gap BUN Creatinine Estim Creat Clear Calc Estimated GFR Random Glucose Calcium 10/23/20 10/23/20 05:58 05:58 WBC 9.7 RBC 4.75 Hgb 14.8 Hct 44.8 MCV 94.3 MCH 31.2 MCHC 33.0 RDW 13.8 Plt Count 204 MPV 11.1 Absolute Nucleated RBC 0.000 Nucleated RBC % (auto) 0.0 PTT (Heparin Protocol) Coag Specimen Comment Sodium 140 Potassium 4.1 D Chloride 107 Carbon Dioxide 26 Anion Gap 11 L BUN 11 Creatinine 0.56 Estim Creat Clear Calc 100.4 Estimated GFR > 60 Random Glucose 101 Calcium 8.9 Progress Note: A&P Assessment and plan (1) Non-STEMI (non-ST elevated myocardial infarction): Status: Acute (2) Essential hypertension: Status: Acute (3) Smoking: Status: Acute Assessment and Plan: Labs reviewed. Initial high sensitivity troponin 1021. Repeat 1373. LDL cholesterol 105. Triglycerides 147. BUN/creatinine unremarkable. Hemoglobin is stable. Platelets are normal range. INR is 1. Based on symptoms, abnormal EKG, elevated troponins, she clearly has an acute myocardial infarction. Continue IV heparin, beta-blockers and high-dose statins. We will plan on transfer to [facility] today for cardiac catheterization. Fall Risk Details Current Medications: Current Medications Generic Name Dose Route Start Last Admin Trade Name Freq PRN Reason Stop Dose Admin Acetaminophen 650 mg 10/21/20 22:37 Acetaminophen 325 Mg Tablet PO Q6H PRN Pain, Mild (Pain Scale 1-3) Aspirin 81 mg 10/22/20 10:55 10/23/20 09:07 Aspirin 81 Mg Tab.Chew PO 81 mg DAILY MAHIN Administration Atorvastatin Calcium 80 mg 10/22/20 21:00 10/22/20 20:42 Atorvastatin Calcium 80 Mg Tablet PO 80 mg BEDTIME MAHIN Administration Heparin Sodium (Porcine) 3,400 unit 10/21/20 22:39 Heparin Sodium,Porcine 5,000 Unit/Ml Vial 40 unit/kg (3400 unit) IVPUSH BOLUS PRN 40 unit/kg - Heparin Protocol Heparin Sodium (Porcine) 6,800 unit 10/21/20 22:39 Heparin Sodium,Porcine 5,000 Unit/Ml Vial 80 unit/kg (6800 unit) IVPUSH BOLUS PRN 80 unit/kg - Heparin Protocol Heparin Sodium/Sodium Chloride 25,000 unit in 250 mls @ 0 mls/hr 10/21/20 23:00 10/22/20 08:09 IVCONT 7.83 units/kg/hr .Q0M MAHIN 6.62 mls/hr Administration Protocol Per Protocol Melatonin 6 mg 10/21/20 22:37 Melatonin 3 Mg Tablet PO BEDTIME PRN Insomnia Metoprolol Tartrate 25 mg 10/22/20 09:00 10/23/20 09:07 Metoprolol Tartrate 25 Mg Tablet PO 25 mg BID MAHIN Administration Protocol Morphine Sulfate 1 mg 10/21/20 22:42 Morphine Sulfate 2 Mg/Ml Cartridge IVPUSH Q4H PRN chesPain Nitroglycerin 0.4 mg 10/21/20 22:37 Nitroglycerin 0.4 Mg Tab.Subl SUBLINGUAL Q5M PRN Chest Pain Sodium Chloride 3 ml 10/22/20 00:00 10/23/20 09:07 0.9 % Sodium Chloride Flush 3 Ml Syringe IVFLUSH 3 ml QSHIFT MAHIN Administration Time Spent With Patient Time: Total time spent is greater than 50% in coordination of care (as documented) at patient's floor/unit and/or counseling patient: Time with patient: less than 15 minutes Progress Note: Quality Stroke Does the patient have a stroke diagnosis?: No Procedures Date of Service Date of Service: 10/23/20
[2020-10-23 12:00] VITALS: BP 124/68; PULSE 71; RESP 20; TEMP 36.4; O2SAT 96
--- NOTE | 2020-10-23 12:42 | MHC.CM.PN ---
PT BEING TRANSFERRED TO [place] [id number] ROOM 19. REQUEST FOR AMBULANCE SENT
[2020-10-23] MEDS: Heparin Sodium,Porcine/1/2NS 25,000 UNIT/250 ML IV.SOLN 6.62 UNIT IVCONT (13:00)
== END 2020-10-23 13:49 | disposition short-term general hospital (02) | DRG 190 ==
LOC: HO.ED 21:22 → HO.EDOVER 23:20 → HO.IMC 10-22 01:15
PROVIDERS: Nurse Practitioner Acute Care; Admitting Provider Hospitalist; Emergency Provider Internal Medicine; PCP Internal Medicine; Visit Provider Internal Medicine
DX: I21.4 Non-ST elevation (NSTEMI) myocardial infarction (principal); E78.5 Hyperlipidemia, unspecified; I10 Essential (primary) hypertension; F17.210 Nicotine dependence, cigarettes, uncomplicated; Z91.14 Patient's other noncompliance with medication regimen; Z71.6 Tobacco abuse counseling; Z20.822 Contact with and (suspected) exposure to COVID-19; Z79.2 Long term (current) use of antibiotics; Z79.899 Other long term (current) drug therapy
CPT/HCPCS: 36415; 71045; 80048; 80061; 82550; 83036; 84484; 85025; 85027; 85379; 85610; 85730; 87635; 93005; 99285

== ENCOUNTER → 2020-11-17 08:55 | Outpatient (BNVA) | payer OTHER, SELFPAY | PROVIDERS: PCP Internal Medicine; Visit Provider Internal Medicine | DX: I25.10 Atherosclerotic heart disease of native coronary artery without angina pectoris (principal); I10 Essential (primary) hypertension; F17.200 Nicotine dependence, unspecified, uncomplicated | CPT/HCPCS: 99212 ==

== ENCOUNTER 2021-01-31 12:32 | Outpatient (REF) | payer OTHER, SELFPAY ==
[2021-01-31 12:44] LABS: MANUAL DIFF FLAG NO
[2021-01-31 13:32] LABS: Basophils Absolute Auto 0.1 X10*3/uL (0.0-0.2); Basophils Percent Auto 0.5 % (0-2); Eosinophils Absolute Auto 0.2 X10*3/uL (0.0-0.4); Eosinophils Percent Auto 1.5 % (0-4); Hematocrit 45.2 % (37-47); Hemoglobin 15.1 g/dl (12.0-16.0); Imm Gran Abs Auto 0.07 X10*3/uL (0.00-0.03); Imm Gran Pct Auto 0.5 % (0.0-0.4); Lymphocytes Absolute Auto 2.4 X10*3/uL (1.2-4.9); Lymphocytes Percent Auto 16.3 % (20-40); Mean Corpuscular HGB Conc 33.4 g/dl (31.0-35.0); Mean Corpuscular Volume 92.8 fL (80-98); Mean Platelet Volume 11.5 fL (9.4-12.3); Monocytes Absolute Auto 1.1 X10*3/uL (0.1-1.2); Monocytes Percent Auto 7.5 % (2-11); Neutrophils Percent Auto 73.7 % (45-73); Platelet Count 246 X10*3/uL (160-400); Red Blood Count 4.87 X10*6/uL (4.20-5.50); White Blood Count 14.9 X10*3/uL (4.8-10.8)
[2021-01-31 13:59] LABS: Alanine Aminotransferase 10 U/L (0-31); Albumin Level 4.1 g/dL (3.5-5.0); Alkaline Phosphatase 79 U/L (39-117); Anion Gap 12 (12-20); Aspartate Amino Transferase 15 U/L (5-31); Bilirubin Total 0.5 mg/dL (0.0-1.0); Blood Urea Nitrogen 9 mg/dL (9-16); Calcium 9.5 mg/dL (8.4-10.2); Carbon Dioxide 27 mmol/L (22-29); Chloride 105 mmol/L (96-108); Cholesterol 113 mg/dL; Estimated Glomerular Filt Rate > 60; Glucose Random 83 mg/dL (60-115); HDL Cholesterol 43 mg/dL; LDL Cholesterol Calculated 44 mg/dl; Potassium 4.6 mmol/L (3.3-5.1); Sodium 139 mmol/L (135-145); Triglycerides 131 mg/dL
== END 2021-01-31 12:33 | disposition home or self-care (01) ==
LOC: HO.LAB 12:32
PROVIDERS: PCP Internal Medicine; Visit Provider Internal Medicine
DX: Z00.00 Encounter for general adult medical examination without abnormal findings (principal); E78.00 Pure hypercholesterolemia, unspecified; I10 Essential (primary) hypertension; Z95.5 Presence of coronary angioplasty implant and graft
CPT/HCPCS: 36415; 80053; 80061; 85025

== ENCOUNTER → 2021-02-09 09:33 | Outpatient (REF) | payer OTHER, SELFPAY ==
--- NOTE | 2021-02-09 09:36 | CA_ITS ---
Transthoracic Echocardiogram Patient (Last, First, Middle): Umu Vargas, Gender: Female Date of : 1960 Age: 60 Procedure Date: 02/09/2021 Procedure Type: Transthoracic Echocardiogram Location: OP Height: 152.4 cm Weight: 72.58 kg BSA: 1.70 m2 Heart Rate: bpm BP: 158 / 71 mmHg Ginning Operator: DIANE Referring MD: Alvaro Werner MD Tree Trimmer: Avila Hollins MD Symptoms: I21.4 - Non-ST elevation (NSTEMI) myocardial infarction Study Quality: Fair ECG Rhythm: Sinus Conclusions: - 1. Normal LV systolic and diastolic function with reduced global longitudinal endocardial strain. 2. Normal cardiac valvular Doppler 3. Normal RV systolic pressure 4. No pericardial effusion Findings Left Ventricle Normal left ventricular size, thickness, and systolic function. The visually estimated ejection fraction is between 60-65%. Spectral Doppler is indicative of a normal filling pattern. The peak global longitudinal endocardial strain is reduced at -15.8%. Clinical significance is uncertain. Right Ventricle Normal right ventricular cavity size and systolic function. Atria Both atria are normal in size. There is lipomatous hypertrophy of the interatrial septum. There is no evidence of interatrial shunt. Aortic Valve Normal aortic valve structure and function. There is no aortic valve stenosis. There is no aortic valve regurgitation. Mitral Valve Likely normal mitral valve structure and function. There is trace mitral valve regurgitation. There is no mitral valve stenosis. Pulmonic Valve The pulmonic valve is likely normal. There is trace pulmonic valve regurgitation. Tricuspid Valve Normal tricuspid valve structure. There is trace tricuspid valve regurgitation. The right ventricular systolic pressure is normal. The right ventricular systolic pressure is 20 mmHg. Normal right atrial pressure. There is no evidence of pulmonary hypertension. Great Vessels All visible segments of the aorta are normal in size. The pulmonary artery was not well visualized. Venous The inferior vena cava is normal in size and collapses greater than 50% with inspiration. Pericardium/Pleural There is no evidence of pericardial effusion. Prior Study Comparison No prior study available for comparison. Measurements 2D Linear Measurements IVSd: 0.94 0.6-0.9/0.6-1.0 cm LVIDd: 4.59 3.9-5.3/4.2-5.9 cm LVIDd Index: 2.70 2.4-3.2/2.2-3.1 cm/m2 LVIDs: 2.81 2.0-3.6 cm LVPWd: 1.12 0.7-1.1 cm Ao Root: 2.70 2.1-3.5 cm LA Diam: 2.90 2.7-3.8/3.0-4.0 cm LAIDs Index: 1.71 1.5-2.3 cm/m2 LV Mass: 205.55 67-162/88-224 g LV Mass Index: 120.91 43-95/49-115 g/m2 LVOT Diam: 2.00 3.0+(-)1.3 cm 2D Systolic Function EF 4C: 55.30 >55% EF 2C: 67.70 >55% EF BiP: 60.90 >55% Mitral Valve MV Pk E: 0.81 MV PK A: 0.85 MV Decel Time: 177.00 E/A: 1.00 E'Lateral: 8.16 E'Medial: 6.31 E/E' Med: 12.80 E/E' Lat: 9.90 PHT: 52.00 MVA PHT: 4.23 Decel Coamo: 4.55 Aortic Valve AoV Pk Omar: 1.21 AoV Pk Grad: 6.00 LVOT LVOT Pk Omar: 1.10 LVOT Mn Omar: 0.72 LVOT VTI: 0.22 LVOT Pk Grad: 5.00 LVOT Mn Grad: 2.00 LVOT Diam: 2.00 LVOT Area: 3.14 Diastolic Function MV Pk E: 0.81 MV Pk A: 0.85 E/A: 1.00 E'Medial: 6.31 E/E' Med: 12.80 E' Laterial: 8.16 E/E' Lat: 9.90 Right Ventricle TAPSE (mm): 1.83 Tricuspid Valve TR Pk Omar: 2.09 TR Pk Grad: 17.00 RA Press: 3.00 RVSP: 20.00 Great Vessels Aorta Ao Root-2D: 2.70 2.0-3.7 cm Updated in Other Vendor System with Status of Final Avila Hollins MD electronically signed on 02/09/2021 12:10:15 PM with status of Final
== END ==
LOC: HO.CARD 09:33
PROVIDERS: PCP Internal Medicine; Visit Provider Internal Medicine
DX: I21.4 Non-ST elevation (NSTEMI) myocardial infarction (principal)
CPT/HCPCS: 93306

== ENCOUNTER → 2021-02-16 09:50 | Outpatient (BNVA) | payer OTHER, SELFPAY | PROVIDERS: PCP Internal Medicine; Visit Provider Internal Medicine | DX: I25.10 Atherosclerotic heart disease of native coronary artery without angina pectoris (principal); I10 Essential (primary) hypertension; F17.200 Nicotine dependence, unspecified, uncomplicated | CPT/HCPCS: 99212 ==

== ENCOUNTER 2021-03-31 13:17 | Outpatient (REF) | payer OTHER, SELFPAY ==
--- NOTE | ~2021-03-31 | MM_ITS ---
EXAMINATION: MM SCREENING DIGITAL BREAST TOMOSYNTHESIS, BILATERAL CLINICAL INFORMATION: Screening. Asymptomatic. The lifetime risk of breast cancer based on the Tyrer-Cuzick Model is 4%. COMPARISON: Mammography: 02/09/2020, 09/23/2018, 06/06/2017 TECHNIQUE: Digital breast tomosynthesis is performed in both the craniocaudal and mediolateral oblique views along with computer-aided detection (CAD). Synthesized 2D images are generated from the tomosynthesis. FINDINGS: There are scattered areas of fibroglandular density (ACR BI-RADS breast composition Category b). There are no significant masses, abnormal calcifications, or other abnormalities. There is no developing density. Parenchymal pattern is similar to prior studies. No significant changes. MM/MM tomosynthesis screening BI IMPRESSION: No mammographic evidence of malignancy. ASSESSMENT: BI-RADS 1: Negative RECOMMENDATION: Routine annual mammography screening. This patient's information was entered into a reminder system with a target due date for their next mammogram.
== END 2021-03-31 13:18 | disposition home or self-care (01) ==
LOC: HO.MAMMO 13:17
PROVIDERS: Visit Provider Internal Medicine
DX: Z12.31 Encounter for screening mammogram for malignant neoplasm of breast (principal)
CPT/HCPCS: 77063; 77067

== ENCOUNTER → 2021-08-21 12:15 | Outpatient (BNVA) | payer OTHER, SELFPAY | PROVIDERS: PCP Internal Medicine; Referring Provider Internal Medicine; Visit Provider Internal Medicine | DX: I25.10 Atherosclerotic heart disease of native coronary artery without angina pectoris (principal); I10 Essential (primary) hypertension; F17.210 Nicotine dependence, cigarettes, uncomplicated | CPT/HCPCS: 99212 ==

== ENCOUNTER 2021-09-06 11:06 | Outpatient (REF) | payer OTHER, SELFPAY ==
[2021-09-06 11:51] LABS: MANUAL DIFF FLAG NO
[2021-09-06 12:16] LABS: Basophils Absolute Auto 0.1 X10*3/uL (0.0-0.2); Basophils Percent Auto 0.6 % (0-2); Eosinophils Absolute Auto 0.3 X10*3/uL (0.0-0.4); Eosinophils Percent Auto 2.7 % (0-4); Hemoglobin 14.5 g/dl (12.0-16.0); Imm Gran Abs Auto 0.04 X10*3/uL (0.00-0.03); Imm Gran Pct Auto 0.4 % (0.0-0.4); Lymphocytes Absolute Auto 3.5 X10*3/uL (1.2-4.9); Lymphocytes Percent Auto 35.3 % (20-40); Mean Corpuscular Hemoglobin 31.3 pg (27.0-33.0); Mean Platelet Volume 10.9 fL (9.4-12.3); Monocytes Absolute Auto 0.9 X10*3/uL (0.1-1.2); Neutrophils Absolute Auto 5.1 x10*3/uL (2.0-8.3); Platelet Count 246 X10*3/uL (160-400); Red Blood Count 4.63 X10*6/uL (4.20-5.50); White Blood Count 9.8 X10*3/uL (4.8-10.8)
[2021-09-06 14:39] LABS: Thyroid Stimulating Hormone 1.05 uIU/mL (0.32-4.0)
[2021-09-06 15:20] LABS: Alanine Aminotransferase 12 U/L (0-31); Albumin Level 3.9 g/dL (3.5-5.0); Alkaline Phosphatase 68 U/L (39-117); Anion Gap 13 (12-20); Aspartate Amino Transferase 15 U/L (5-31); Bilirubin Total 0.5 mg/dL (0.0-1.0); Blood Urea Nitrogen 14 mg/dL (9-16); Calcium 9.5 mg/dL (8.4-10.2); Carbon Dioxide 25 mmol/L (22-29); Chloride 107 mmol/L (96-108); Cholesterol 119 mg/dL; Estimated Glomerular Filt Rate > 60; Glucose Random 105 mg/dL (60-115); HDL Cholesterol 42 mg/dL; LDL Cholesterol Calculated 57 mg/dl; Potassium 4.9 mmol/L (3.3-5.1); Sodium 140 mmol/L (135-145); Total Protein 6.7 g/dL (6.5-8.0); Triglycerides 100 mg/dL
== END 2021-09-06 11:07 | disposition home or self-care (01) ==
LOC: HO.LAB 11:06
PROVIDERS: PCP Internal Medicine; Visit Provider Internal Medicine
DX: E78.2 Mixed hyperlipidemia (principal); I10 Essential (primary) hypertension; R63.5 Abnormal weight gain; Z72.0 Tobacco use; Z95.818 Presence of other cardiac implants and grafts
CPT/HCPCS: 36415; 80053; 80061; 84443; 85025

== ENCOUNTER 2021-12-27 09:42 | Outpatient (REF) | payer OTHER, SELFPAY ==
--- NOTE | ~2021-12-27 | XR_ITS ---
EXAMINATION: XR SHOULDER, LEFT CLINICAL INFORMATION: Pain in left shoulder COMPARISON: None TECHNIQUE: AP external rotation, Grashey, scapular Y, and axillary views of the left shoulder. FINDINGS: The bones and soft tissues are normal. No fracture. Glenohumeral and acromioclavicular alignment is anatomic with normal joint space. No abnormal soft tissue calcifications. XR/XR shoulder LT min 2V IMPRESSION: Normal left shoulder.
== END 2021-12-27 09:43 | disposition home or self-care (01) ==
LOC: HO.XRAY 09:42
PROVIDERS: PCP Internal Medicine; Visit Provider Internal Medicine
DX: M25.512 Pain in left shoulder (principal)
CPT/HCPCS: 73030

== ENCOUNTER → 2022-01-29 10:50 | Outpatient (BNVA) | payer OTHER, SELFPAY | PROVIDERS: PCP Internal Medicine; Visit Provider Physician Assistant | DX: M75.02 Adhesive capsulitis of left shoulder (principal) | CPT/HCPCS: 99202 ==

== ENCOUNTER 2022-04-24 12:38 | Outpatient (REF) | payer OTHER, SELFPAY ==
--- NOTE | ~2022-04-24 | FL_ITS ---
PROCEDURE: XR ARTHROGRAM SHOULDER, LEFT CLINICAL INFORMATION: Areas of capsulitis left shoulder. COMPARISON: None TECHNIQUE: Following explaining fluoroscopy-guided left shoulder steroid injection procedure, benefits and risk, a written consent was obtained. Patient was placed supine on fluoroscopy table and anterior aspect of left shoulder was cleaned and draped in the usual sterile manner. 1% lidocaine was injected at puncture site. A 22-gauge spinal needle was then inserted into the glenohumeral joint space and 2 mL of nonionic contrast was injected. A single image was obtained documenting contrast in the joint space. Subsequently 80 mg of the Depo-Medrol, 5 mL of 1% lidocaine and 5 mL 0.25% of bupivacaine as 11 mL volume was injected and needle withdrawn. Complete hemostasis achieved at puncture site. Sterile Band-Aid applied postprocedure. Patient tolerated procedure extremely well. FINDINGS: On preliminary images the glenohumeral joint space is maintained normal with minimal inferior glenoid spurring. No loose bodies or fracture seen. Contrast opacifies the left glenohumeral joint space without extravasation. 80 mg of Depo-Medrol was injected into the joint space. FLUOROSCOPY TIME: 0.7 minutes DOSE AREA PRODUCT: 2.896 uGy-m2 (microgray-meter squared) FL/FL arthrogram shoulder LT IMPRESSION: Successful fluoroscopic-guided steroid injection left glenohumeral joint.
== END 2022-04-24 12:39 | disposition home or self-care (01) ==
LOC: HO.XRAY 12:38
PROVIDERS: PCP Internal Medicine; Visit Provider Physician Assistant
DX: M75.02 Adhesive capsulitis of left shoulder (principal)
CPT/HCPCS: 23350; 73040

== ENCOUNTER → 2022-05-07 14:55 | Outpatient (BNVA) | payer OTHER, SELFPAY | PROVIDERS: PCP Internal Medicine; Referring Provider Internal Medicine; Visit Provider Internal Medicine | DX: I25.10 Atherosclerotic heart disease of native coronary artery without angina pectoris (principal); I10 Essential (primary) hypertension; F17.200 Nicotine dependence, unspecified, uncomplicated; Z71.6 Tobacco abuse counseling | CPT/HCPCS: 93005; 99212 ==

== ENCOUNTER 2023-02-09 09:37 | Outpatient (REF) | payer OTHER, SELFPAY ==
[2023-02-09 09:47] LABS: MANUAL DIFF FLAG NO
[2023-02-09 10:07] LABS: Basophils Absolute Auto 0.1 X10*3/uL (0.0-0.2); Basophils Percent Auto 0.9 % (0-2); Eosinophils Absolute Auto 0.4 X10*3/uL (0.0-0.4); Hematocrit 43.1 % (37.0-47.0); Hemoglobin 13.9 g/dl (12.0-16.0); Imm Gran Abs Auto 0.05 X10*3/uL (0.00-0.03); Imm Gran Pct Auto 0.6 % (0.0-0.4); Lymphocytes Percent Auto 38.8 % (20-40); Mean Corpuscular HGB Conc 32.3 g/dl (31.0-35.0); Mean Platelet Volume 10.9 fL (9.4-12.3); Monocytes Absolute Auto 0.7 X10*3/uL (0.1-1.2); Monocytes Percent Auto 9.5 % (2-11); Neutrophils Absolute Auto 3.5 x10*3/uL (2.0-8.3); Neutrophils Percent Auto 45.2 % (45-73); Platelet Count 257 X10*3/uL (160-400); Red Blood Count 4.49 X10*6/uL (4.20-5.50); Red Cell Distribution Width 13.8 % (11.0-16.0); White Blood Count 7.8 X10*3/uL (4.8-10.8)
[2023-02-09 10:33] LABS: Alanine Aminotransferase 9 U/L (0-31); Albumin Level 3.6 g/dL (3.5-5.0); Alkaline Phosphatase 59 U/L (39-117); Anion Gap 13 (12-20); Aspartate Amino Transferase 15 U/L (5-31); Bilirubin Total 0.3 mg/dL (0.0-1.0); Blood Urea Nitrogen 17 mg/dL (9-16); Calcium 9.9 mg/dL (8.4-10.2); Carbon Dioxide 27 mmol/L (22-29); Chloride 103 mmol/L (96-108); Cholesterol 192 mg/dL (<200); Estimated Glomerular Filt Rate > 60; Glucose Random 122 mg/dL (60-115); HDL Cholesterol 40 mg/dL (>40); LDL Cholesterol Calculated 119 mg/dL (<100); Sodium 139 mmol/L (135-145); Total Protein 6.9 g/dL (6.5-8.0); Triglycerides 167 mg/dL (<150)
== END 2023-02-09 09:38 | disposition home or self-care (01) ==
LOC: HO.LAB 09:37
PROVIDERS: PCP Internal Medicine; Visit Provider Internal Medicine
DX: Z00.00 Encounter for general adult medical examination without abnormal findings (principal); E78.2 Mixed hyperlipidemia; I10 Essential (primary) hypertension; F17.201 Nicotine dependence, unspecified, in remission; Z95.818 Presence of other cardiac implants and grafts
CPT/HCPCS: 36415; 80053; 80061; 85025

== ENCOUNTER 2023-02-18 15:33 | Outpatient (REF) | payer OTHER, SELFPAY | END 2023-02-18 15:34 | disposition home or self-care (01) | LOC: HO.MAMMO 15:33 | PROVIDERS: PCP Internal Medicine; Visit Provider Internal Medicine | DX: Z12.31 Encounter for screening mammogram for malignant neoplasm of breast (principal) | CPT/HCPCS: 77063; 77067 ==

== ENCOUNTER → 2023-02-18 16:30 | Outpatient (BNV) | payer OTHER, SELFPAY | PROVIDERS: PCP Internal Medicine; Visit Provider Radiology Diagnostic Radiology | DX: Z12.31 Encounter for screening mammogram for malignant neoplasm of breast (principal) | CPT/HCPCS: 77063; 77067 ==

== ENCOUNTER 2023-02-27 14:35 | Outpatient (AMB) | payer OTHER, SELFPAY ==
--- NOTE | 2023-02-27 14:41 | MHC.OFFVIS ---
Intake Vital Signs 02/27/23 14:43 Height 5 ft Weight 161 lb BMI 31.4 BP 137/67 Blood Pressure Location Lt brachial Position Sitting Pulse 73 Intake Visit Reasons: Colonscopy Screening Intake Note: Patient new consult for 2nd pre colonoscopy screening. Patient denies any GI issues. 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 Nothing specific-however she know she should have been done. She has a normal bowel pattern She has a good appetite Follows up with cardiology-no longer taking anticoagulant-with no issues no chest pain or shortness of breath No nausea, vomiting, hematemesis, hematochezia fevers chills PFSH Medical History (Updated 02/28/23 @ 08:13 by Luci Abbott PA-C) On beta radha at home Hyperlipidemia Myocardial infarction Atherosclerotic cardiovascular disease Hypertension Surgical History Hx of colonoscopy History of cardiac catheterization (~10/24/20) Family History Mother CAD (coronary artery disease) Father Cancer Social History (Updated 02/27/23 @ 14:57 by Luci Abbott PA-C) Household Members: Family Housing: House Do you presently have visiting nurse or other home services: No Alcohol intake: never Patient Tobacco Use Status: Current everyday Tobacco user Tobacco use type: Cigarette Cigarettes Per Day: 6 service: No Current occupational status: unemployed 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 Review of Systems Const All systems reviewed & are unremarkable except as noted in HPI and below Card Denies chest pain and Denies dyspnea Resp Denies dyspnea GI Denies change in bowel habits, Denies heartburn, Denies diarrhea, Denies nausea and Denies vomiting Psych Reports anxiety Physical Exam Vital Signs: Last Vital Signs Pulse 73 02/27/23 14:43 BP 137/67 02/27/23 14:43 BMI result Body Mass Index 31.4 Const General: cooperative, healthy appearing, comfortable, no acute distress and anxious Orientation/consciousness: patient oriented x3 Limitations: no limitations Eyes Sclerae: sclerae normal Resp Effort & Inspection: normal respiratory effort and able to speak in complete sentences Auscultation: no rales, rhonchi (clr w/ cough) and no wheezes Cardio Rate: regular rate Rhythm: regular rhythm Heart sounds: S1 normal heart sound present and S2 normal heart sound present GI Palpation (GI): Soft to palpation and nontender Auscultation: normal bowel sounds Skin General skin exam: no rashes or lesions noted Neuro General: patient oriented x3 Extrem General: Yes full ROM Psych Appearance: grossly normal and well kempt Mental Status: mental status grossly normal Speech and movement: Normal speech and movement present and Clear speech present Affect: Anxious affect present Attitude: cooperative Thought process: Normal thought process present Thought content: Normal thought content present Results Reviewed Results Reviewed: 2011-hyperplastic polyp Assessment & Plan Assessment & Plan (1) History of colon polyps: Comment: 62-year-old female-anxiety HX KS- stent-with with no further anticoagulation Hyperplastic polyp 2010 Reviewed colonoscopy, rare risks, need for escort, prep, and alternatives Code(s): Z86.010 - Personal history of colonic polyps Plan: Colonoscopy-as agreed upon Plan Screening colonoscopy MG prep Orders: Orders Colonoscopy - GI Use Only 02/27/23 Z12.11 - Encounter for screening for malignant neoplasm of colon Medications: New polyethylene glycol 3350 (Miralax) Take as directed by mouth the day before your procedure. 238 grams PO ONCE 1 day 238 grams 0RF laxative effect bisacodyl (Dulcolax (bisacodyl)) Day before procedure, prep day Take 4 tablets by mouth upon awakening followed by large glass of water 20 mg (4 x 5 mg) PO ONCE 1 day 4 tabs 0RF colonoscopy prep Z12.11 - Encounter for screening for malignant neoplasm of colon Patient Instructions: Screening colonoscopy- review details MG prep-prep reviewed literature given Encouraged to call with any questions or concerns Coding Level of Care Code New Pt Level 3 (48086) Diagnoses History of colon polyps Z86.010 Time Spent (min) 30
[2023-02-27 14:43] VITALS: BP 137/67; PULSE 73; BMI 31.4
== END 2023-02-27 15:10 | disposition home or self-care (01) ==
PROVIDERS: PCP Internal Medicine; Visit Provider Physician Assistant
DX: Z86.010 Personal history of colon polyps (principal)
CPT/HCPCS: 99203

== ENCOUNTER → 2023-02-27 14:35 | Outpatient (BNVA) | payer OTHER, SELFPAY | PROVIDERS: PCP Internal Medicine; Visit Provider Physician Assistant | DX: Z12.11 Encounter for screening for malignant neoplasm of colon (principal); Z86.010 Personal history of colon polyps | CPT/HCPCS: 99202 ==

== ENCOUNTER 2023-06-29 09:56 | Outpatient (REF) | payer OTHER, SELFPAY ==
[2023-06-29 10:49] LABS: Estimated Average Glucose 123 mg/dL; Hemoglobin A1c % 5.9 % (<6.0)
[2023-06-29 10:59] LABS: Alanine Aminotransferase 8 U/L (0-31); Albumin Level 3.7 g/dL (3.5-5.0); Alkaline Phosphatase 55 U/L (39-117); Anion Gap 10 (12-20); Aspartate Amino Transferase 15 U/L (5-31); Bilirubin Total 0.4 mg/dL (0.0-1.0); Blood Urea Nitrogen 14 mg/dL (9-16); Calcium 9.3 mg/dL (8.4-10.2); Carbon Dioxide 30 mmol/L (22-29); Chloride 105 mmol/L (96-108); Cholesterol 111 mg/dL (<200); Estimated Glomerular Filt Rate > 60; Glucose Random 113 mg/dL (60-115); HDL Cholesterol 45 mg/dL (>40); LDL Cholesterol Calculated 40 mg/dL (<100); Sodium 141 mmol/L (135-145); Triglycerides 133 mg/dL (<150)
== END 2023-06-29 09:57 | disposition home or self-care (01) ==
LOC: HO.LAB 09:56
PROVIDERS: PCP Internal Medicine; Visit Provider Internal Medicine
DX: E78.2 Mixed hyperlipidemia (principal); F17.201 Nicotine dependence, unspecified, in remission; I10 Essential (primary) hypertension; R73.01 Impaired fasting glucose
CPT/HCPCS: 36415; 80053; 80061; 83036

== ENCOUNTER 2023-07-08 14:26 | Outpatient (AMB) | payer OTHER, SELFPAY ==
--- NOTE | 2023-07-08 14:30 | MHC.OFFVIS ---
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: No Accompanied by: Self / Same As Patient Allergies No Known Drug Allergies [NO KNOWN DRUG ALLERGIES] Allergy (Mild, Verified 07/08/23 14:33) NONE Medication List - Last Reconciled 07/08/23 by Alvaro Werner MD aspirin 81 mg PO DAILY bisacodyl (Dulcolax (bisacodyl)) 20 mg (4 x 5 mg) PO ONCE 1 day hydrochlorothiazide 25 mg PO DAILY ibuprofen 600 mg PO TID PRN lisinopril 30 mg PO DAILY metoprolol succinate ER 50 mg PO DAILY polyethylene glycol 3350 (Miralax) 238 grams PO ONCE 1 day rosuvastatin 20 mg PO BEDTIME HPI HPI Comments History of Present Illness Details Umu returns for follow-up regarding coronary artery disease. In 2020, she was hospitalized for chest pain and in that context diagnosed with non ST elevation myocardial infarction. She underwent cardiac catheterization and PDA stenting. Overall, she states she is doing fine. No cardiac symptoms. Unfortunately, still smoking. [facility] Medical History (Updated 02/28/23 @ 08:13 by Luci Abbott PA-C) On beta radha at home Hyperlipidemia Myocardial infarction Atherosclerotic cardiovascular disease Hypertension Surgical History Hx of colonoscopy History of cardiac catheterization (~10/24/20) Family History Mother CAD (coronary artery disease) Father Cancer Social History Household Members: Family Housing: House Do you presently have visiting nurse or other home services: No Alcohol intake: never Comment: heparin drip Patient Tobacco Use Status: Current everyday Tobacco user Tobacco use type: Cigarette Cigarettes Per Day: 6 service: No Current occupational status: unemployed 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 Review of Systems Const Denies weakness ENT Denies dizziness Card Denies chest pain, Denies chest pain with activity, Denies syncope, Denies rapid heart rate, Denies pedal edema, Denies edema, Denies leg edema, Denies lightheadedness, Denies dyspnea on exertion and Denies orthopnea Resp Denies cough and Denies dyspnea on exertion GI Denies hematochezia and Denies change in stool character Musc Denies abnormal gait, Denies muscle cramps, Denies muscle weakness, Denies numbness, Denies radiating pain into limb and Denies tingling Neuro Denies abnormal gait, Denies dizziness, Denies syncope, Denies numbness, Denies tingling and Denies weakness Physical Exam Vital Signs: Last Vital Signs Pulse 68 07/08/23 14:32 BP 118/66 07/08/23 14:32 BMI result Body Mass Index 32.3 Const General: comfortable and no acute distress Orientation/consciousness: patient oriented x3 HEENT Other: Unremarkable Head: Yes normal to inspection Neck Neck: Yes normal visual inspection Chest Chest palpation & inspection: normal inspection of the chest Resp Auscultation: clear to auscultation bilaterally Cardio Palpation: normal PMI Heart sounds: S1 normal heart sound present, S2 normal heart sound present, no gallops, no murmurs and no rubs GI Palpation (GI): Soft to palpation Back/Spine/Pelvis Other: unremarkable Skin General skin exam: no rashes or lesions noted Neuro General: patient oriented x3 Extrem General: Yes normal to inspection Psych Mental Status: mental status grossly normal Office Procedures EKG Details: EKG with sinus rhythm at 68/Min; no significant ST-T changes and otherwise unremarkable. [place] [id number], Complete Assessment & Plan Assessment & Plan (1) Atherosclerotic cardiovascular disease: Code(s): I25.10 - Atherosclerotic heart disease of [place] coronary artery without angina pectoris Plan: Cardiac catheterization reviewed from 10/2020. Culprit lesion was in the right PDA which was stented with drug-eluting stent. She had moderate disease in the circumflex and OM. Continue aspirin and statins. Most recent LDL is 40 mg/dL. (2) Essential hypertension: Code(s): I10 - Essential (primary) hypertension Plan: Stable. No changes. (3) Smoking: Code(s): F17.200 - Nicotine dependence, unspecified, uncomplicated Plan: We discussed about smoking cessation. Unclear if she will quit or not. Plan Total time spent including review of data, counseling, documentation, coordination of care-31 minutes. Coding Level of Care Code Est Pt Level 4 (63013) Diagnoses Atherosclerotic cardiovascular disease I25.10 Essential hypertension I10 Smoking F17.200 CPT Codes EKG - CPT: 85517-[id number], Complete ([id number])
[2023-07-08 14:32] VITALS: BP 118/66; PULSE 68; BMI 32.3
== END 2023-07-08 14:43 | disposition home or self-care (01) ==
PROVIDERS: PCP Internal Medicine; Visit Provider Internal Medicine
DX: I25.10 Atherosclerotic heart disease of native coronary artery without angina pectoris (principal); I10 Essential (primary) hypertension; F17.200 Nicotine dependence, unspecified, uncomplicated
CPT/HCPCS: 93010; 99214

== ENCOUNTER → 2023-07-08 14:26 | Outpatient (BNVA) | payer OTHER, SELFPAY | PROVIDERS: PCP Internal Medicine; Visit Provider Internal Medicine | DX: I25.10 Atherosclerotic heart disease of native coronary artery without angina pectoris (principal); I25.2 Old myocardial infarction; I10 Essential (primary) hypertension; F17.210 Nicotine dependence, cigarettes, uncomplicated | CPT/HCPCS: 93005; 99212 ==

== ENCOUNTER 2023-07-12 09:20 | Day surgery (SDC) | payer OTHER, SELFPAY ==
--- NOTE | 2023-07-11 10:14 | HO.ANESPROP2 ---
Documented by User: Suni Wilkerson NP 07/11/23 10:19 HPI - Anesthesia Eval Consult details Narrative: 62yo M for Colonoscopy CAD with TX s/p [place] 2020. [place] [facility] [place]. Last office visit 06/2023, routine yearly. Stable. [facility] Active Problems Active Problems: All Active Problems (Updated 02/28/23 @ 08:13 by Luci Abbott PA-C) History of colon polyps (Acute) Adhesive capsulitis of left shoulder (Acute) Non-STEMI (non-ST elevated myocardial infarction) (Acute) Essential hypertension (Acute) Smoking (Acute) Uncontrolled hypertension (Acute) Atherosclerotic cardiovascular disease (Acute) Past Medical History Medical History (Updated 02/28/23 @ 08:13 by Luci Abbott PA-C) On beta radha at home Hyperlipidemia Myocardial infarction Atherosclerotic cardiovascular disease Hypertension Family History Family History Mother CAD (coronary artery disease) Father Cancer Surgical History Surgical History Hx of colonoscopy History of cardiac catheterization (~10/24/20) Social History Social History Household Members: Family Housing: House Do you presently have visiting nurse or other home services: No Alcohol intake: never Comment: heparin drip Patient Tobacco Use Status: Current everyday Tobacco user Tobacco use type: Cigarette Cigarette Packs Per Day: 0.5 Cigarettes Per Day: 10.0 Years Smoked: 50 Smoked in Last 30 Days: Yes Are you DNR?: No Advance Directives: No Advance Directives Information Provided: Yes service: No Current occupational status: unemployed 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 Meds Allergies Allergy/AdvReac Type Severity Reaction Status Date / Time No Known Drug Allergies Allergy Mild NONE Verified 07/08/23 14:33 [NO KNOWN DRUG ALLERGIES] Home Medications Medication Instructions Recorded Confirmed Last Taken Type metoprolol succinate 50 mg 50 mg PO DAILY 11/17/20 07/08/23 Unknown History tablet,extended release 24 hr aspirin 81 mg tablet,delayed 81 mg PO DAILY 01/29/22 07/08/23 Unknown History release ibuprofen 600 mg tablet 600 mg PO TID PRN pain 01/29/22 07/08/23 Unknown History hydrochlorothiazide 25 mg tablet 25 mg PO DAILY 05/07/22 07/08/23 Unknown History rosuvastatin 20 mg tablet 20 mg PO BEDTIME 07/08/23 07/08/23 Unknown History Exam Narrative Narrative: EKG 06/2023 sinus rhythm at 68/Min; no significant ST-T changes and otherwise unremarkable. Normal MD and corrected QT. Assessment and Plan Assessment Anesthesia Assessment: Chart Reviewed Documented by User: Lorraine Juarez MD 07/12/23 10:29 [facility] Past Medical History Medical History (Updated 02/28/23 @ 08:13 by Luci Abbott PA-C) On beta radha at home Hyperlipidemia Myocardial infarction Atherosclerotic cardiovascular disease Hypertension Family History Family History Mother CAD (coronary artery disease) Father Cancer Family history of problems with anesthesia: No Surgical History Surgical History Hx of colonoscopy History of cardiac catheterization (~10/24/20) History of Problems with Anesthesia: No Social History Social History Household Members: Family Housing: House Do you presently have visiting nurse or other home services: No Alcohol intake: never Comment: heparin drip Patient Tobacco Use Status: Current everyday Tobacco user Tobacco use type: Cigarette Cigarette Packs Per Day: 0.5 Cigarettes Per Day: 10.0 Years Smoked: 50 Smoked in Last 30 Days: Yes Are you DNR?: No Advance Directives: No Advance Directives Information Provided: Yes service: No Current occupational status: unemployed 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 Meds Allergies Allergy/AdvReac Type Severity Reaction Status Date / Time No Known Drug Allergies Allergy Mild NONE Verified 07/08/23 14:33 [NO KNOWN DRUG ALLERGIES] Home Medications Medication Instructions Recorded Confirmed Last Taken Type metoprolol succinate 50 mg 50 mg PO DAILY 11/17/20 07/08/23 Unknown History tablet,extended release 24 hr aspirin 81 mg tablet,delayed 81 mg PO DAILY 01/29/22 07/08/23 Unknown History release ibuprofen 600 mg tablet 600 mg PO TID PRN pain 01/29/22 07/08/23 Unknown History hydrochlorothiazide 25 mg tablet 25 mg PO DAILY 05/07/22 07/08/23 Unknown History rosuvastatin 20 mg tablet 20 mg PO BEDTIME 07/08/23 07/08/23 Unknown History Exam Airway Mallampati Class: II TM Dist: >3cm Neck ROM: Full Denture: Upper Heart: rrr Lungs: cta Assessment and Plan Assessment Anesthesia Assessment: Anesthesia Plan Discussed Final Anesthetic Review Family History of Problems with Anesthesia: No History of Problems with Anesthesia: No NPO: Yes ASA Class: III Final Preanesthetic Review: No Changes in Pt Med Stat, Meds/Allgs Chart Reviewed and Consent Obtained/Reviewed Patient Risk: Low Procedure Risk: Low Anesthetic Plan Anesthetic Plan: MAC: Disposition: Standard PACU
[2023-07-12 10:02] VITALS: BP 130/74; PULSE 70; RESP 16; TEMP 37.3; O2SAT 95; BMI 32.0
--- NOTE | 2023-07-12 10:28 | MHC.SHP ---
Pre-Procedural Eval Section A - 24 Hr Update-Section A only Date of Service: 07/12/23 The patient is an INPATIENT: No The patient has been examined within 24 hours of the surgical procedure. The History & Physical has been completed within 30 days and I have reviewed it.: No Section B - Complete if H&P > 30 days Chief Complaint: Surveillance for colon polyps Relevant Family History (Specify if Yes): No Relevant Social History: Tobacco Use Present Medications: see Short Stay Collaborative assessment Medical History: Significant History (On beta radha at home Hyperlipidemia Myocardial infarction Atherosclerotic cardiovascular disease Hypertension) History of Previous Operations: Relevant previous surgery/procedure and date(s) (Hx of colonoscopy History of cardiac catheterization (~10/24/20)) Allergies: Allergies Allergy/AdvReac Type Severity Reaction Status Date / Time No Known Drug Allergies Allergy Mild NONE Verified 07/08/23 14:33 [NO KNOWN DRUG ALLERGIES] Review of Systems Sugical H&P ROS: Negative: Constitution, Cardiovascular, Respiratory and Gastrointestinal Exam Surgical H&P Exam: Normal: Heart, Normal: Lungs, Normal: Extremities and Normal: Abdomen Plan Diagnosis/Plan: Unchanged I have reviewed the history and physical and performed a pertinent physical examination on my patient. No changes have occurred unless specified. Time Spent With Patient Time: Total time managing care of this patient today ____ minutes.
[2023-07-12] MEDS: Sodium Phosphate,Mono-Dibasic 133 ML ENEMA PR (10:41)
[2023-07-12] MEDS: Lactated Ringers 1,000 ML 100 ML IVCONT (11:18)
--- NOTE | 2023-07-12 11:36 | W.PM.OPN ---
Operative Note Operative Note Date of Service: 07/12/23 Narrative: COLONOSCOPY TILL CECUM WITH BIOPSIES, SNARE POLYPECTOMY, SUBMUCOSAL INJECTION AND HEMOCLIP PLACEMENT Pre-op diagnosis: Colon cancer screening, history of multiple hyperplastic polyps on past colonoscopy in 2010 Post-op diagnosis:? Colon polyps, Diverticulosis Endoscopist:Jono Gomez MD Anesthesia:?MAC Consent: Indications for the procedure and potential complications of bleeding, perforation, reaction to medications and missed diagnosis were discussed with the patient and informed consent was obtained. Instrument: Olympus PCF H 190 variable stiffness pediatric colonoscope Monitoring: Vital signs and clinical assessment, intermittent blood pressure monitoring, continuous EKG monitoring, Pulse oximetry and Carbon Dioxide monitoring were done throughout the procedure. Please see anesthesia flowsheet. Colon withdrawl time was 28 minutes. Procedure: The patient was placed in the left lateral decubitis position and pre-procedure medications were administered. After a digital rectal examination of the ano-rectum, the video colonoscope was inserted into the rectum and advanced through the colon to the cecum. The colonoscope was slowly withdrawn in a retrograde panoramic fashion and the colon mucosa was carefully examined including a retroflexed view of the rectum. Findings and interventions are described below. Procedure Difficulty: without difficulty Findings: Terminal Ileum: Not evaluated Cecum: A 10-12 mm flat polyp overlying the distal fold of the ICV. Polyp was raised with 4 cc of [place] and removed with a stiff hot snare. Residual polyp was removed with a cold biopsy - minor bleeding noted and controlled with cautery using the snare tip. Ascending Colon: A 12 - 15 mm sessile polyp - removed with hot snare. Polypectomy site was closed with 1 hemoclip Transverse Colon: Normal Descending Colon: Normal Sigmoid Colon: Multiple 5 to 12 mm hyperplastic appearing polyps in the rectosigmoid - 2 were removed with a hot snare. Moderate diverticulosis Rectum: Multiple 5 to 12 mm hyperplastic appearing polyps in the rectosigmoid - 3 were removed with a hot snare. Ano-rectum: Normal Colon preparation: Excellent after some irrigation. [place] Bowel Preparation Scale Right colon; 3 Transverse colon: 3 Left colon; 3 (0 = Unprepared colon segment with mucosa not seen due to solid stool that cannot be cleared. 1 = Portion of mucosa of the colon segment seen, but other areas of the colon segment not well seen due to staining, residual stool and/or opaque liquid. 2 = Minor amount of residual staining, small fragments of stool and/or opaque liquid, but mucosa of colon segment seen well. 3 = Entire mucosa of colon segment seen well with no residual staining, small fragments of stool or opaque liquid) Impression and Post Procedure Diagnosis: Colonoscopy Findings: Seven medium sized polyps were removed Moderate diverticulosis seen in the sigmoid colon Plan: I will send a letter with pathology results. Repeat Colonoscopy in 3-5 years if polyps are adenomatous and 10 year if polyps are hyperplastic. Above findings were reviewed with the patient and relevant handouts were given and the discharge area.
[2023-07-12 12:22] VITALS: BP 101/66; PULSE 69; RESP 19; TEMP 36.2; O2SAT 100
[2023-07-12 12:37] VITALS: BP 106/66; PULSE 74; RESP 20; TEMP 36.4; O2SAT 99
== END 2023-07-12 13:00 | disposition home or self-care (01) ==
PROVIDERS: PCP Internal Medicine; Visit Provider Internal Medicine Gastroenterology
PROC: 0DJD8ZZ Inspection of Lower Intestinal Tract, Via Natural or Artificial Opening Endoscopic (ICD-10-PCS; CPT 45378; principal; 2023-07-12 12:10)
DX: Z12.11 Encounter for screening for malignant neoplasm of colon (principal); Z86.010 Personal history of colon polyps; D12.2 Benign neoplasm of ascending colon; D12.8 Benign neoplasm of rectum; K63.5 Polyp of colon; K57.30 Diverticulosis of large intestine without perforation or abscess without bleeding; I25.10 Atherosclerotic heart disease of native coronary artery without angina pectoris; Z95.5 Presence of coronary angioplasty implant and graft; I25.2 Old myocardial infarction; I10 Essential (primary) hypertension; E78.5 Hyperlipidemia, unspecified; Z79.899 Other long term (current) drug therapy; Z79.82 Long term (current) use of aspirin; F17.210 Nicotine dependence, cigarettes, uncomplicated; Z56.0 Unemployment, unspecified
CPT/HCPCS: 45385; 45380; 45381; 88305; J2704

== ENCOUNTER → 2023-07-12 09:20 | Outpatient (BNV) | payer OTHER, SELFPAY | PROVIDERS: PCP Internal Medicine; Visit Provider Internal Medicine Gastroenterology | DX: Z12.11 Encounter for screening for malignant neoplasm of colon (principal); Z86.010 Personal history of colon polyps; D12.8 Benign neoplasm of rectum; D12.2 Benign neoplasm of ascending colon; K57.30 Diverticulosis of large intestine without perforation or abscess without bleeding; K63.5 Polyp of colon | CPT/HCPCS: 45380; 45381; 45385 ==

== ENCOUNTER 2023-10-04 19:33 | Emergency (ER) | payer MEDICARE, MEDICAID, SELFPAY ==
--- NOTE | ~2023-10-04 | XR_ITS ---
EXAMINATION: XR SHOULDER , RIGHT CLINICAL INFORMATION: Pain COMPARISON: None available at the time of this dictation. TECHNIQUE: AP external rotation, Grashey, scapular Y, and axillary views of the shoulder. Total of 4 views FINDINGS: BONES: There is no fracture or dislocation, no osteolytic or osteoblastic lesion. JOINTS: Glenohumeral joint is properly positioned. There is mild degenerative osteoarthritis of the acromioclavicular joint. SOFT TISSUE AND INCLUDED LUNG: Normal. XR/XR shoulder RT min 2V IMPRESSION: Except for mild DJD of the AC joint, exam is normal.
[2023-10-04 19:36] VITALS: BP 183/80; PULSE 85; RESP 20; TEMP 36.6; O2SAT 94; BMI 28.2
--- NOTE | 2023-10-04 19:36 | ED_ITS ---
HPI - General Adult General Chief complaint: Extremity Injury, Upper Stated complaint: R arm pain Time Seen by Provider: 10/04/23 21:07 Source: patient and RN notes reviewed Mode of arrival: ambulatory Limitations: no limitations History of Present Illness ED Provider: Shana Acevedo PA-C HPI narrative: This is a 63-year-old female, with a history of NSTEMI with stents, who presents emergency department with complaints of nontraumatic right shoulder pain since yesterday. Patient denies any recent trauma or injury however states that she has been taking care of her 2-year-old grandson daily. She denies any specific movement causing her to have pain however states that gradually throughout the day yesterday she noticed stiffness and pain in her right shoulder. She denies any fevers or chills. She denies any chest pain or shortness of breath. Denies any numbness or tingling. She states that she has a history of left shoulder problems however denies any history of right shoulder problems. No other complaints or concerns at this time. MD complaint: Right shoulder pain Onset (ago): day(s) Location: upper extremity Radiation: non-radiation Severity: moderate Quality: aching Pain Consistency: constant Relieving factors: none Exacerbating factors: movement Associated symptoms: denies other symptoms Treatments prior to arrival: none Related Data Home Medications ?Medication ?Instructions ?Recorded ?Confirmed metoprolol succinate 50 mg 50 mg PO DAILY 11/17/20 07/08/23 tablet,extended release 24 hr aspirin 81 mg tablet,delayed 81 mg PO DAILY 01/29/22 07/08/23 release hydrochlorothiazide 25 mg tablet 25 mg PO DAILY 05/07/22 07/08/23 rosuvastatin 20 mg tablet 20 mg PO BEDTIME 07/08/23 07/08/23 Previous Rx's ?Medication ?Instructions ?Recorded lisinopril 30 mg tablet 30 mg PO DAILY #30 tabs 01/15/22 acetaminophen 500 mg tablet 1,000 mg (2 x 500 mg) PO Q6H PRN 10/04/23 (Tylenol Extra Strength) pain #30 tabs ibuprofen 600 mg tablet 600 mg PO Q6H PRN pain #30 tabs 10/04/23 Allergies Allergy/AdvReac Type Severity Reaction Status Date / Time No Known Drug Allergies Allergy Mild NONE Verified 10/04/23 19:38 [NO KNOWN DRUG ALLERGIES] Review of Systems 2 Review of Systems: Yes all other systems are reviewed and are negative Constitutional: Constitutional: Reports as per [facility] Past Medical History Medical History (Updated 10/04/23 @ 21:31 by ASMITA Paiz) On beta radha at home Hyperlipidemia Myocardial infarction Atherosclerotic cardiovascular disease Hypertension Surgical History Hx of colonoscopy History of cardiac catheterization (~10/24/20) Family History Family History Mother CAD (coronary artery disease) Father Cancer Social History Social History Household Members: Family Housing: House Do you presently have visiting nurse or other home services: No Alcohol intake: never Comment: heparin drip Patient Tobacco Use Status: Current everyday Tobacco user Tobacco use type: Cigarette Cigarette Packs Per Day: 0.5 Cigarettes Per Day: 10.0 Years Smoked: 50 Advance Directives: No Advance Directives Information Provided: No Do you have a plan to hurt others: No Plan service: No Current occupational status: unemployed 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 Head: Yes normal to inspection, Yes normocephalic and Yes atraumatic Ears: hearing grossly normal bilaterally General nose exam: Normal external nose present Face and sinus: Yes normal facial exam Mouth: Normal oral and palatal mucosa present, oropharynx normal and moist mucous membranes Throat: Yes posterior oropharynx normal Eyes General: appearance normal, both eyes and all related structures Eyelids: Yes eyelids normal Conjunctivae: conjunctivae normal Sclerae: sclerae normal Pupils: Equal, round and reactive pupils present EOM: EOMs intact bilaterally Neck Neck: Yes normal visual inspection, Yes full ROM and Yes no lymphadenopathy Lymphatic: no lymphadenopathy noted Chest Chest palpation & inspection: normal inspection of the chest Resp Effort & Inspection: normal respiratory effort and able to speak in complete sentences Auscultation: clear to auscultation bilaterally, no crackles, no rales, no rhonchi and no wheezes Cardio Rate: regular rate Rhythm: regular rhythm Heart sounds: S1 normal heart sound present and S2 normal heart sound present GI Inspection: Yes normal to inspection Skin General skin exam: no rashes or lesions noted Trauma: no lacerations or abrasions Wounds: no wounds Neuro General: patient oriented x3 and moves all extremities Cranial nerves: Yes Equal, round and reactive pupils present Extrem Other: Tenderness palpation diffusely throughout right shoulder, more tenderness around the AC joint and bicipital groove. Strong radial pulse. Decreased active range of motion, passive range of motion to approximately 45? with frontal flexion and abduction. General: Yes normal to inspection Right upper extremity: normal to inspection Left upper extremity: normal to inspection Right lower extremity: normal to inspection Left lower extremity: normal to inspection Course Course Course Narrative: RME performed by Heena Ralph PA-C. Patient is a 63 year old assigned female at presenting to the emergency department with right shoulder pain. Patient has a cardiac history. Patient unable to brush her hair with her right arm secondary to pain at the shoulder. Detailed physical exam and review of systems are deferred to the substance abuse clinician. EKG, labs, and imaging ordered. Patient placed back in the waiting room pending room availability and results. Medical Decision Making Medical Decision Making [facility] Narrative: This is a 63-year-old female, with a history of NSTEMI with stents, who presents emergency department complaints of atraumatic right shoulder pain since yesterday. On arrival, patient hypertensive at 183/80. Repeat pressure when I assess patient was 160/102, likely secondary to pain. Right shoulder is diffusely tender, with decreased active range of motion. Differential diagnoses include osteoarthritis, rotator cuff injury, adhesive capsulitis, fracture, sprain, strain. Given cardiac history, labs, EKG will be obtained. She has no chest pain or shortness for breath. See Differential Diagnosis Differential Diagnoses: The differential diagnosis associated with the presentation includes See above Admission/Observation Consideration of admission/observation: Escalation of care including admission/observation considered Lab Data [facility] Lab Attestation statement: I reviewed the patient's lab results. Slight leukocytosis at 11.4, likely reactive. No evidence of JASMIN, slight hyperglycemia at 1:28 a.m. however nonfasting. Negative troponin. EKG normal sinus rhythm at a ventricular rate of 69 beats per minute, QT QTC 388/415. No ST elevation or depression. 10/04/23 20:13 10/04/23 20:13 Labs: Lab Results 10/04/23 Range/Units 20:13 WBC 11.4 H (4.8-10.8) X10*3/uL RBC 4.39 (4.20-5.50) X10*6/uL Hgb 13.9 (12.0-16.0) g/dl Hct 41.1 (37.0-47.0) % MCV 93.6 (80.0-98.0) fL MCH 31.7 (27.0-33.0) pg MCHC 33.8 (31.0-35.0) g/dl RDW 13.6 (11.0-16.0) % Plt Count 207 (160-400) X10*3/uL MPV 10.6 (9.4-12.3) fL Immature Gran % (Auto) 0.3 (0.0-0.4) % Neut % (Auto) 57.0 (45-73) % Lymph % (Auto) 30.6 (20-40) % [place] % (Auto) 9.1 (2-11) % Eos % (Auto) 2.4 (0-4) % Baso % (Auto) 0.6 (0-2) % Lymph # (Auto) 3.5 (1.2-4.9) X10*3/uL [place] # (Auto) 1.0 (0.1-1.2) X10*3/uL Eos # (Auto) 0.3 (0.0-0.4) X10*3/uL Baso # (Auto) 0.1 (0.0-0.2) X10*3/uL Abs Immat Gran (auto) 0.04 H (0.00-0.03) X10*3/uL Absolute Neuts (auto) 6.5 (2.0-8.3) x10*3/uL Absolute Nucleated RBC 0.000 (0.0-0.012) X10*3/uL Nucleated RBC % (auto) 0.0 (0.0-0.2) /100WBC Sodium 137 (135-145) mmol/L Potassium 4.3 (3.3-5.1) mmol/L Chloride 103 (96-108) mmol/L Carbon Dioxide 25 (22-29) mmol/L Anion Gap 13 (12-20) BUN 21 H (9-16) mg/dL Creatinine 0.79 (0.5-1.4) mg/dL Estim Creat Clear Calc 75.4 Estimated GFR > 60 Random Glucose 128 H (60-115) mg/dL Calcium 9.7 (8.4-10.2) mg/dL Total Bilirubin 0.3 (0.0-1.0) mg/dL AST 21 (5-31) U/L ALT 9 (0-31) U/L Alkaline Phosphatase 61 (39-117) U/L Troponin I High Sens < 2.7 (<3.5-17.0) ng/L Total Protein 7.2 (6.5-8.0) g/dL Albumin 3.9 (3.5-5.0) g/dL Radiology Impression Discussion of test interpretation with radiology: I have reviewed the radiologist's reading. Radiologist Impression: XR/XR shoulder RT min 2V IMPRESSION: Except for mild DJD of the AC joint, exam is normal. Dictated By: Janna Dickerson MD Discharge Plan Discharge Clinical Impression: Shoulder pain, right Qualifiers: Chronicity: acute Qualified Code(s): M25.511 - Pain in right shoulder Patient Disposition: Home, Self-Care Instructions: Arthralgia (ED), Shoulder Pain (ED) Additional Instructions: You were seen in the emergency department due to right shoulder pain. Your blood work was reassuring. Your EKG was normal. Your x-ray of your right shoulder revealed some arthritis. I want you to follow-up with the orthopedic team as it is unclear whether not you have rotator cuff involvement. The orthopedic team will better assist you with treatment. Call on Saturday to make an appointment. Alternate between ibuprofen and Tylenol as needed for pain. Use sling for comfort however it is very important for you to take arm out of sling multiple times today and perform [id number] activities. Heat or ice can also help with symptoms. If any new or worsening symptoms occur including but not limited to chest pain or shortness of breath, please return for re-evaluation. Prescriptions: New ibuprofen 600 mg tablet 600 mg PO Q6H PRN (Reason: pain) Qty: 30 0RF acetaminophen [Tylenol Extra Strength] 500 mg tablet 1,000 mg PO Q6H PRN (Reason: pain) Qty: 30 0RF No Action lisinopril 30 mg tablet 30 mg PO DAILY Qty: 30 8RF metoprolol succinate 50 mg tablet extended release 24 hr 50 mg PO DAILY hydrochlorothiazide 25 mg tablet 25 mg PO DAILY aspirin 81 mg tablet,delayed release (DR/EC) 81 mg PO DAILY rosuvastatin 20 mg tablet 20 mg PO BEDTIME Referrals: [facility] [Provider Group] Print Language: Latvian
--- NOTE | 2023-10-04 19:38 | ECG_ITS ---
Test Reason : shoulder pain Blood Pressure : / mmHG Vent. Rate : 069 BPM Atrial Rate : 069 BPM P-R Int : 180 ms QRS Dur : 066 ms QT Int : 388 ms P-R-T Axes : 078 062 049 degrees QTc Int : 415 ms Normal sinus rhythm Normal ECG When compared with ECG of 21-OCT-2020 19:45, ST no longer depressed in Lateral leads T wave inversion no longer evident in Inferior leads Nonspecific T wave abnormality no longer evident in Lateral leads QT has shortened Referred By: Heena Ralph Electronically Signed By:Emanuel Yun
[2023-10-04 20:20] LABS: MANUAL DIFF FLAG NO
[2023-10-04 20:21] LABS: Basophils Absolute Auto 0.1 X10*3/uL (0.0-0.2); Basophils Percent Auto 0.6 % (0-2); Eosinophils Absolute Auto 0.3 X10*3/uL (0.0-0.4); Eosinophils Percent Auto 2.4 % (0-4); Hematocrit 41.1 % (37.0-47.0); Hemoglobin 13.9 g/dl (12.0-16.0); Imm Gran Abs Auto 0.04 X10*3/uL (0.00-0.03); Imm Gran Pct Auto 0.3 % (0.0-0.4); Lymphocytes Absolute Auto 3.5 X10*3/uL (1.2-4.9); Lymphocytes Percent Auto 30.6 % (20-40); Mean Corpuscular HGB Conc 33.8 g/dl (31.0-35.0); Mean Corpuscular Hemoglobin 31.7 pg (27.0-33.0); Mean Corpuscular Volume 93.6 fL (80.0-98.0); Mean Platelet Volume 10.6 fL (9.4-12.3); Monocytes Percent Auto 9.1 % (2-11); Neutrophils Absolute Auto 6.5 x10*3/uL (2.0-8.3); Platelet Count 207 X10*3/uL (160-400); Red Blood Count 4.39 X10*6/uL (4.20-5.50); Red Cell Distribution Width 13.6 % (11.0-16.0); White Blood Count 11.4 X10*3/uL (4.8-10.8)
[2023-10-04 20:34] LABS: Alanine Aminotransferase 9 U/L (0-31); Albumin Level 3.9 g/dL (3.5-5.0); Alkaline Phosphatase 61 U/L (39-117); Anion Gap 13 (12-20); Aspartate Amino Transferase 21 U/L (5-31); Bilirubin Total 0.3 mg/dL (0.0-1.0); Blood Urea Nitrogen 21 mg/dL (9-16); Calcium 9.7 mg/dL (8.4-10.2); Carbon Dioxide 25 mmol/L (22-29); Chloride 103 mmol/L (96-108); Creatinine Clr Calc Pharmacy 75.4; Estimated Glomerular Filt Rate > 60; Glucose Random 128 mg/dL (60-115); Potassium 4.3 mmol/L (3.3-5.1); Sodium 137 mmol/L (135-145); Total Protein 7.2 g/dL (6.5-8.0)
[2023-10-04 20:41] LABS: Troponin-I High Sensitivity < 2.7 ng/L (<3.5-17.0)
[2023-10-04 21:21] VITALS: BP 160/102; PULSE 72; RESP 16; TEMP 36.3; O2SAT 98
[2023-10-04] MEDS: Ibuprofen 600 MG TABLET PO (21:46)
[2023-10-04 21:48] VITALS: BP 160/102; PULSE 72; RESP 16; TEMP 36.3; O2SAT 98
== END 2023-10-04 21:48 | disposition home or self-care (01) ==
PROVIDERS: Physician Assistant Medical; Emergency Provider Emergency Medicine; PCP Internal Medicine
DX: M25.511 Pain in right shoulder (principal); M79.601 Pain in right arm; F17.210 Nicotine dependence, cigarettes, uncomplicated; Z79.899 Other long term (current) drug therapy
CPT/HCPCS: 36415; 73030; 80053; 84484; 85025; 93005; 99283; 99284

== ENCOUNTER → 2023-10-04 19:38 | Outpatient (BNV) | payer MEDICARE, MEDICAID, SELFPAY | PROVIDERS: Emergency Provider Emergency Medicine; PCP Internal Medicine; Visit Provider Internal Medicine Cardiovascular Disease | DX: M25.519 Pain in unspecified shoulder (principal) | CPT/HCPCS: 93010 ==

== ENCOUNTER 2023-10-22 13:47 | Outpatient (AMB) | payer MEDICARE, MEDICAID, SELFPAY ==
--- NOTE | 2023-10-22 13:53 | MHC.OFFVIS ---
Intake Visit Reasons: New Pt - Right shoulder Pain Intake Note: Umu is a 63 year old female who presents to the office today for a new patient visit for right shoulder pain. Pt states the pain started about 2 weeks ago with no injury. Pt states she isn't in as much pain now but states she will get some stabbing pains occasionally just in her shoulder. She thinks that she may have aggravated her right shoulder while lifting her 2-year-old grandson. She denies any numbness or tingling in either upper extremity. She has taken ibuprofen which gives her fairly good relief. Allergies No Known Drug Allergies [NO KNOWN DRUG ALLERGIES] Allergy (Mild, Verified 10/22/23 14:02) NONE Medication List - Last Reconciled 10/22/23 by Fawad Pineda MD acetaminophen (Tylenol Extra Strength) 1,000 mg (2 x 500 mg) PO Q6H PRN aspirin 81 mg PO DAILY hydrochlorothiazide 25 mg PO DAILY ibuprofen 600 mg PO Q6H PRN lisinopril 30 mg PO DAILY metoprolol succinate ER 50 mg PO DAILY rosuvastatin 20 mg PO BEDTIME PFSH Medical History (Updated 10/05/23 @ 00:01 by Ibeth Holly) On beta radha at home Hyperlipidemia Myocardial infarction Atherosclerotic cardiovascular disease Hypertension Surgical History Hx of colonoscopy History of cardiac catheterization (~10/24/20) Family History Mother CAD (coronary artery disease) Father Cancer Social History Household Members: Family Housing: House Do you presently have visiting nurse or other home services: No Alcohol intake: never Comment: heparin drip Patient Tobacco Use Status: Current everyday Tobacco user Tobacco use type: Cigarette Cigarette Packs Per Day: 0.5 Cigarettes Per Day: 10.0 Years Smoked: 50 service: No Current occupational status: unemployed 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 Physical Exam Const Other: Well-nourished well-developed very friendly female awake alert and oriented x3 in no acute distress Extrem Other: Bilateral upper extremity examination shows good capillary refill, no skin lesions noted, normal sensation light touch Right shoulder examination shows full range of motion when compared to her left shoulder, 5/5 strength with supraspinatus testing, positive impingement signs, no instability Results Reviewed Results Reviewed: X-rays of the patient's right shoulder show moderate acromioclavicular joint narrowing, a type 2 acromion, no acute bony abnormalities Assessment & Plan Assessment & Plan (1) Atherosclerotic cardiovascular disease: Code(s): I25.10 - Atherosclerotic heart disease of [place] coronary artery without angina pectoris Category: Medical Plan Ms. Vargas presents with intermittent right shoulder pain most likely due to impingement syndrome. I had a lengthy discussion with the patient regarding the treatment options. At this point the patient's symptoms are tolerable to her. She will continue with her home stretching program to prevent stiffness. She will follow up with me on an as-needed basis should her symptoms worsen in any way. Feel free to call me at any time should questions regarding her orthopedic management arise. Thank you very much for asking me to see this very friendly patient. I spent 20 minutes in reviewing the patient's records and imaging studies, seeing the patient and documenting in the medical record. Coding Level of Care Code New Pt Level 3 (34000) Diagnoses Atherosclerotic cardiovascular disease I25.10
== END 2023-10-22 14:38 | disposition home or self-care (01) ==
PROVIDERS: PCP Internal Medicine; Visit Provider Physician Assistant
DX: I25.10 Atherosclerotic heart disease of native coronary artery without angina pectoris (principal)
CPT/HCPCS: 99202

== ENCOUNTER → 2023-10-22 13:47 | Outpatient (BNVA) | payer MEDICARE, MEDICAID, SELFPAY | PROVIDERS: PCP Internal Medicine; Visit Provider Physician Assistant | DX: M25.511 Pain in right shoulder (principal); I25.10 Atherosclerotic heart disease of native coronary artery without angina pectoris | CPT/HCPCS: 99202 ==

== ENCOUNTER 2024-02-18 06:24 | Outpatient (REF) | payer MEDICARE, MEDICAID, SELFPAY ==
[2024-02-18 07:57] LABS: Estimated Average Glucose 126 mg/dL; Hemoglobin A1C 163.8853 umol/L; Total Hemoglobin (HGBA1C) 3924.1068 umol/L
[2024-02-18 08:21] LABS: Alanine Aminotransferase 13 U/L (0-31); Albumin Level 3.9 g/dL (3.5-5.0); Alkaline Phosphatase 59 U/L (39-117); Anion Gap 12 (12-20); Aspartate Amino Transferase 22 U/L (5-31); Bilirubin Total 0.3 mg/dL (0.0-1.0); Blood Urea Nitrogen 17 mg/dL (9-16); Calcium 9.9 mg/dL (8.4-10.2); Carbon Dioxide 28 mmol/L (22-29); Chloride 102 mmol/L (96-108); Cholesterol 133 mg/dL (<200); Estimated Glomerular Filt Rate > 60; Glucose Random 124 mg/dL (60-115); HDL Cholesterol 44 mg/dL (>40); LDL Cholesterol Calculated 63 mg/dL (<100); Potassium 4.1 mmol/L (3.3-5.1); Sodium 138 mmol/L (135-145); Total Protein 7.2 g/dL (6.5-8.0); Triglycerides 134 mg/dL (<150)
== END 2024-02-18 06:25 | disposition home or self-care (01) ==
LOC: HO.LAB 06:24
PROVIDERS: PCP Internal Medicine; Visit Provider Internal Medicine
DX: E78.2 Mixed hyperlipidemia (principal); F17.210 Nicotine dependence, cigarettes, uncomplicated; I10 Essential (primary) hypertension; R73.01 Impaired fasting glucose
CPT/HCPCS: 36415; 80053; 80061; 83036

== ENCOUNTER 2024-04-11 09:42 | Outpatient (REF) | payer MEDICARE, MEDICAID, SELFPAY | END 2024-04-11 09:43 | disposition home or self-care (01) | LOC: HO.MAMMO 09:42 | PROVIDERS: PCP Internal Medicine; Visit Provider Internal Medicine | DX: Z12.31 Encounter for screening mammogram for malignant neoplasm of breast (principal) | CPT/HCPCS: 77063; 77067 ==

== ENCOUNTER → 2024-04-11 10:00 | Outpatient (BNV) | payer MEDICARE, MEDICAID, SELFPAY | PROVIDERS: PCP Internal Medicine; Visit Provider Internal Medicine | DX: Z12.31 Encounter for screening mammogram for malignant neoplasm of breast (principal) | CPT/HCPCS: 77063; 77067 ==

== ENCOUNTER 2024-06-15 13:36 | Outpatient (AMB) | payer MEDICARE, MEDICAID, SELFPAY ==
[2024-06-15 13:47] VITALS: BP 138/68; PULSE 88; BMI 25.6
--- NOTE | 2024-06-15 13:47 | A.OFFVIS_ITS ---
Vital Signs 06/15/24 13:47 Height 5 ft 6 in Weight 158 lb 11.725 oz BMI 25.6 BP 138/68 Blood Pressure Location Lt brachial Position Sitting Pulse 88 Pulse Source Pulse Oximeter Intake Visit Reasons: 1 yr f/up Allergies No Known Drug Allergies [NO KNOWN DRUG ALLERGIES] Allergy (Mild, Verified 10/22/23 14:02) NONE Medication List - Last Reconciled 06/15/24 by Alvaro Werner MD aspirin 81 mg PO DAILY hydrochlorothiazide 25 mg PO DAILY lisinopril 30 mg PO DAILY metoprolol succinate ER 50 mg PO DAILY rosuvastatin 20 mg PO BEDTIME HPI Comments Details: Umu returns for follow-up regarding coronary artery disease. In 2020, she was hospitalized for chest pain and in that context diagnosed with non ST elevation myocardial infarction. She underwent cardiac catheterization and PDA stenting. Since last seen, no new cardiac concerns. She states she feels good. No angina. Unfortunately, she is still smoking. [facility] Medical History (Updated 10/05/23 @ 00:01 by Ibeth Holly) On beta radha at home Hyperlipidemia Myocardial infarction Atherosclerotic cardiovascular disease Hypertension Surgical History Hx of colonoscopy History of cardiac catheterization (~10/24/20) Family History Mother CAD (coronary artery disease) Father Cancer Social History Household Members: Family Housing: House Do you presently have visiting nurse or other home services: No Alcohol intake: never Comment: heparin drip Patient Tobacco Use Status: Current everyday Tobacco user Tobacco use type: Cigarette Cigarette Packs Per Day: 0.5 Cigarettes Per Day: 10.0 Years Smoked: 50 service: No Current occupational status: unemployed 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 Review of Systems Const Denies weakness ENT Denies dizziness Card Denies chest pain, Denies chest pain with activity, Denies syncope, Denies rapid heart rate, Denies pedal edema, Denies edema, Denies leg edema, Denies lightheadedness, Denies palpitations, Denies dyspnea, Denies dyspnea on exertion and Denies orthopnea Resp Denies cough, Denies dyspnea and Denies dyspnea on exertion GI Denies hematochezia and Denies change in stool character Musc Denies abnormal gait, Denies muscle cramps, Denies muscle weakness, Denies numbness, Denies radiating pain into limb and Denies tingling Neuro Denies abnormal gait, Denies dizziness, Denies syncope, Denies numbness, Denies tingling and Denies weakness Endo Denies palpitations Physical Exam Vital Signs: Last Vital Signs Pulse 88 06/15/24 13:47 BP 138/68 06/15/24 13:47 BMI result Body Mass Index 25.6 Const General: comfortable and no acute distress Orientation/consciousness: patient oriented x3 HEENT Other: Unremarkable Head: Yes normal to inspection Neck Neck: Yes normal visual inspection Chest Chest palpation & inspection: normal inspection of the chest Resp Auscultation: clear to auscultation bilaterally Cardio Palpation: normal PMI Heart sounds: S1 normal heart sound present, S2 normal heart sound present, no gallops, no murmurs and no rubs GI Palpation (GI): Soft to palpation Back/Spine/Pelvis Other: unremarkable Skin General skin exam: no rashes or lesions noted Neuro General: patient oriented x3 Extrem General: Yes normal to inspection Psych Mental Status: mental status grossly normal Assessment & Plan Assessment & Plan (1) Atherosclerotic cardiovascular disease: Code(s): I25.10 - Atherosclerotic heart disease of [place] coronary artery without angina pectoris Category: Medical Plan: Cardiac catheterization reviewed from 10/2020. Culprit lesion was in the right PDA which was stented with drug-eluting stent. She had moderate disease in the circumflex and OM. Continue aspirin and statins. Most recent LDL is 63 mg/dL. (2) Essential hypertension: Code(s): I10 - Essential (primary) hypertension Category: Medical Plan: Stable. No changes. (3) Smoking: Code(s): F17.200 - Nicotine dependence, unspecified, uncomplicated Category: Social Hx Plan: We discussed about smoking cessation. Strongly encouraged her to quit. Coding Level of Care Code Est Pt Level 4 (97365) Complex EM visit Add On G2211 Diagnoses Atherosclerotic cardiovascular disease I25.10 Essential hypertension I10 Smoking F17.200
== END 2024-06-15 14:07 | disposition home or self-care (01) ==
PROVIDERS: PCP Internal Medicine; Visit Provider Internal Medicine
DX: I25.10 Atherosclerotic heart disease of native coronary artery without angina pectoris (principal); I10 Essential (primary) hypertension; F17.200 Nicotine dependence, unspecified, uncomplicated
CPT/HCPCS: 99214; G2211

== ENCOUNTER → 2024-06-15 13:36 | Outpatient (BNVA) | payer MEDICARE, MEDICAID, SELFPAY | PROVIDERS: PCP Internal Medicine; Visit Provider Internal Medicine | DX: I25.10 Atherosclerotic heart disease of native coronary artery without angina pectoris (principal); I10 Essential (primary) hypertension; I21.4 Non-ST elevation (NSTEMI) myocardial infarction; F17.210 Nicotine dependence, cigarettes, uncomplicated; Z95.1 Presence of aortocoronary bypass graft | CPT/HCPCS: 99212 ==

== ENCOUNTER 2025-03-26 07:20 | Outpatient (AMB) | payer MEDICARE, MEDICAID, SELFPAY ==
--- NOTE | 2025-03-09 10:15 | MHC.OFFVIS ---
Intake Visit Reasons: current smoker Allergies No Known Drug Allergies (NO KNOWN DRUG ALLERGIES) Allergy (Mild, Verified 10/22/23 14:02) NONE HPI HPI current smoker: Details: Initial visit for this 64yo smoker with a 25PYH. Patient started smoking at age 11 for 53 years at 1/2ppd. Currently at 5-6 cigarettes a day. . Denies marijuana use. Denies second hand smoke exposure. Denies exposure to chemicals or substances like asbestos. . History of family history of lung cancer. Sister small cell carcinoma in her 40's. Denies personal history of cancers. Denies chest CT in last year. . Denies recent travel outside the [place]. Denies recent respiratory illness or recent hospitalization for respiratory issues. History testing positive for COVID. Admits receiving COVID Vaccine. . Denies fever, chills, new/worsening cough, hemoptysis, hoarseness or dysphagia. Denies significant chest pain, significant dyspnea or unintentional weight loss. Patient Lung Cancer Screening Questionnaire reviewed with patient by provider. . Shared Decision Making Completed. Patient meets criteria. Discussed in detail with patient, the risk vs benefit of LDCT screening. Patient consents to proceed with scan. Discussed smoking cessation. [facility] Medical History (Updated 03/09/25 @ 10:20 by Corrie Harris PA-C) Atherosclerotic cardiovascular disease History of non-ST elevation myocardial infarction (NSTEMI) Hypertension Hyperlipidemia On beta radha at home History of colon polyps Nicotine dependence, cigarettes, uncomplicated Surgical History (Updated 11/26/24 @ 16:07 by Corrie Harris PA-C) History of pubovaginal sling History of foot surgery History of colonoscopy History of cardiac catheterization (~10/24/20) Family History Mother CAD (coronary artery disease) Father Cancer Social History (Updated 03/09/25 @ 10:20 by Corrie Harris PA-C) Household Members: Family Housing: House Do you presently have visiting nurse or other home services: No Alcohol intake: never Comment: heparin drip Patient Tobacco Use Status: Current everyday Tobacco user Tobacco use type: Cigarette Years Smoked: (onset 11yo, 1/2ppd x 53yrs, now 1/4ppd - 25PYH) service: No Current occupational status: unemployed 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 Telehealth Telehealth Telehealth Platform: Telephone Location of provider rendering services: practice address Location of patient: address on file Patient Identification confirmed using: Name, : Yes Telehealth method: voice only Patient verbally consented to treatment: Yes Patient verbally consented to billing insurance company: Yes Patient informed of any privacy concerns related to visit: Yes Minutes spent on Phone/Video with Pt.: 15 Assessment & Plan Assessment & Plan (1) Nicotine dependence, cigarettes, uncomplicated: Comment: (onset 11yo, 1/2ppd x 53yrs, now 1/4ppd - 25PYH) Code(s): F17.210 - Nicotine dependence, cigarettes, uncomplicated Category: Medical Plan: - SDM visit completed today via phone. Scheduled for LDCT 03/26/25. - Patient meets criteria for LDCT for lung cancer screening purposes and is asymptomatic. - Smoking cessation counseling offered. Patients can always call [phone]. - Will arrange for a LDCT scan of the chest for screening purposes at [facility]. - Risks, benefits, and alternatives were discussed in detail and the patient agrees to proceed. - Risks discussed include but are not limited to: radiation exposure, anxiety during testing and while awaiting results, false negatives, false positives and possibility of additional intervention such as further imaging or surgical procedures for benign disease. - Benefits are obviously detection of lung cancer at an early stage which can lead to improved outcomes. - Discussed the importance of screening program compliance with adherence to yearly LDCT scan as scheduled - or sooner interval scans for personalized screening regimen. - Discussed follow up plan. Our office will send a letter discussing results and if needed set up phone call and office visit based on CT findings. - Patient educated on results categorization and the management decisions for suspicious findings potentially found on the screening LDCT scan. Any patient with a Lung RADS score of 3 or 4 will be reviewed by a multidisciplinary team at [facility] to form a plan of action in regards to scan findings. - If further work up is warranted for a suspicious lung finding this will be followed by the Lung Cancer Screening program in conjunction with the Thoracic Surgery Department at [facility]. - A copy of the office note and LDCT will be sent to the patient's PCP - as well as documentation on any associated further plans of care. - Incidental findings on LDCT are the PCP's responsibility. These findings are indicated with an S finding on the LDCT Assessment. A note discussing the findings will be sent to the PCP who is then responsible for further management. - All questions answered.? Coding Level of Care Code Lung Cancer Screening G0296 Diagnoses Nicotine dependence, cigarettes, uncomplicated F17.210
== END 2025-03-26 07:28 ==
LOC: HO.HPS 07:20
PROVIDERS: PCP Internal Medicine; Visit Provider Physician Assistant Medical
DX: F17.210 Nicotine dependence, cigarettes, uncomplicated (principal)
CPT/HCPCS: G0296

== ENCOUNTER 2025-03-26 10:34 | Outpatient (REF) | payer MEDICARE, MEDICAID, SELFPAY ==
--- NOTE | ~2025-03-26 | CT_ITS ---
EXAMINATION: CT LUNG SCREENING HISTORY: F17.210 - Nicotine dependence, cigarettes, uncomplicated TECHNIQUE: Low dose axial images were obtained from the sternal notch to upper abdomen without IV contrast per standard departmental protocol. Sagittal and coronal reformatted images were also obtained and reviewed. One or more of the following techniques was used for dose reduction: Automated exposure control, adjustment of the mA and/or kV according to patient size, use of iterative reconstruction technique. DLP: 44 mGy-cm COMPARISON: Chest x-ray October 2020 FINDINGS: Lung nodules: Mild paraseptal emphysema in the upper lobes. No pulmonary nodules. Scattered areas of bronchial wall thickening. Central airways are clear. Emphysema: mild Coronary Calcification: mild Aortic Arch Calcification: mild Potentially Significant Incidentals : none Additional Chest Findings: Normal heart size. There is no pleural or pericardial effusion. No mediastinal or axillary lymphadenopathy is identified. No chest wall mass. Visualized upper abdomen: The visualized portions of the liver, spleen, and adrenals have an unremarkable unenhanced appearance. The gallbladder has been removed. Degenerative changes of the spine. CT/CT lung screening IMPRESSION: Mild emphysema. No pulmonary nodules. LUNG-RADS ASSESSMENT: Lung-RADS 1: Negative MANAGEMENT: Continue annual screening with LDCT in 12 months Category S: N/A Electronically signed by: Stephanie Boyle MD 03/26/2025 12:19 PM [facility]
== END 2025-03-26 10:35 | disposition home or self-care (01) ==
LOC: HO.CT 10:34
PROVIDERS: PCP Internal Medicine; Visit Provider Physician Assistant Medical
DX: F17.210 Nicotine dependence, cigarettes, uncomplicated (principal)
CPT/HCPCS: 71271; G0296

== ENCOUNTER → 2025-03-26 10:36 | Outpatient (BNV) | payer MEDICARE, MEDICAID, SELFPAY | PROVIDERS: PCP Internal Medicine; Visit Provider Radiology Diagnostic Radiology | DX: F17.210 Nicotine dependence, cigarettes, uncomplicated (principal) | CPT/HCPCS: 71271 ==